=== PATIENT | female | born 1965 | race African-American/Black ===

== ENCOUNTER 2020-07-22 21:55 | Emergency (ER) | payer MEDICAID ==
[~2020-07-22] VITALS: Ht 167.6 cm; Wt 94.5 kg
[~2020-07-22 21:55] MED LIST: METF500T PO; QUET100T PO
[2020-07-22 22:54] LABS: BASOPHILS % (AUTO) 0.4 % (0.0-2.0); EOSINOPHILS % (AUTO) 0.7 % (1.0-6.0); HEMATOCRIT 39.8 % (36-46); LYMPHOCYTES # (AUTO) 2.2 K/uL (1.0-4.8); MEAN CORPUSCULAR HEMOGLOBIN 29.9 pg (26.0-34.0); MEAN CORPUSCULAR HGB CONC 32.6 G/dL (31.0-37.0); MEAN CORPUSCULAR VOLUME 92 fL (80-100); MONOCYTES # (AUTO) 0.7 K/uL (0.1-1.0); MONOCYTES % (AUTO) 6.7 % (2.0-9.0); NEUTROPHILS # (AUTO) 7.6 K/uL (1.8-7.7); NEUTROPHILS % (AUTO) 71.2 % (40.0-70.0); PLATELET COUNT (AUTO) 302 K/uL (150-450); RED BLOOD CELL COUNT(AUTO) 4.35 MIL/uL (4.00-5.20); RED CELL DISTRIBUTION WIDTH 14.3 % (11.5-14.5)
[2020-07-22 23:09] LABS: ANION GAP 14 mmol/L (8-16); CARBON DIOXIDE 22 mmol/L (22-29); CHLORIDE 102 mmol/L (98-107); CREATININE 1.07 mg/dL (0.60-1.30); GLOMERULAR FILTR. RATE CALC > 60 mL/min (>60); GLUCOSE,RANDOM 223 mg/dL (70-110); POTASSIUM 3.3 mmol/L (3.5-5.1); SODIUM SERUM 138 mmol/L (136-145); UREA NITROGEN, BLOOD 18 mg/dL (7-18)
[2020-07-22 23:15] LABS: ALANINE AMINOTRANSFERASE 238 U/L (12-78); ALBUMIN 3.6 g/dL (3.4-5.0); ALKALINE PHOSPHATASE 123 U/L (46-116); ASPARTATE AMINOTRANSFERASE 279 U/L (15-37); BILIRUBIN,TOTAL 0.1 mg/dL (0.1-1.0); TOTAL PROTEIN, SERUM 7.7 g/dL (6.4-8.2)
[2020-07-22 23:16] LABS: ACETAMINOPHEN < 2 mcg/mL (10-30)
[2020-07-22 23:19] LABS: SALICYLATE < 2.5 mg/dL (2.8-20.0)
[2020-07-23 06:00] VITALS: BP 117/73
== END 2020-07-23 06:20 | disposition home or self-care (01) ==
LOC: EMS 21:55
DX: T40.2X1A Poisoning by other opioids, accidental (unintentional), initial encounter (principal); E11.9 Type 2 diabetes mellitus without complications; F17.200 Nicotine dependence, unspecified, uncomplicated; Z79.4 Long term (current) use of insulin; Y92.89 Other specified places as the place of occurrence of the external cause
CPT/HCPCS: 36415; 80053; 85025; 93005; 99285; G0480; G0481

== ENCOUNTER 2020-08-26 08:48 | Inpatient (IN) | payer MEDICAID ==
[2020-08-26] MEDS ORDERED: LORazepam 2 MG/ML VIAL ONE (14:34)
[2020-08-26] MEDS ORDERED: HALOPERIDOL LACTATE 5 MG/ML VIAL ONE (14:34)
[2020-08-26] MEDS ORDERED: DiphenhydrAMINE HCL 50 MG/ML VIAL ONE (14:34)
[2020-08-26] MEDS ORDERED: HALOPERIDOL LACTATE 5 MG/ML VIAL IM ONE (14:45)
[2020-08-26] MEDS ORDERED: LORazepam 2 MG/ML VIAL IM ONE (14:45)
[2020-08-26] MEDS ORDERED: DiphenhydrAMINE HCL 50 MG/ML VIAL IM ONE (14:45)
[2020-08-26] MEDS ORDERED: HALOPERIDOL 5 MG TABLET PO PRN (15:30)
[2020-08-26] MEDS ORDERED: ZOLPIDEM TARTRATE 10 MG TABLET PO PRN (15:30)
[2020-08-26 17:06] VITALS: BP 113/79
[2020-08-26] MEDS: NICOTINE 14 MG/24 HOUR PATCH TD SCH (20:53)
[2020-08-26 21:02] LABS: GLUCOMETER DEV NAME(LOC) BV3S.; GLUCOSE,POINT OF CARE 153 MG/DL (70-110)
[2020-08-27] MEDS: NICOTINE 14 MG/24 HOUR PATCH TD SCH (10:04)
[2020-08-27] MEDS: LORazepam 2 MG TABLET PO PRN (10:04)
[2020-08-27] MEDS ORDERED: RisperiDONE 1 MG TABLET PO SCH (18:45)
[2020-08-27] MEDS: BENZTROPINE MESYLATE 1 MG TABLET PO SCH (18:53)
[2020-08-27] MEDS: DIVALPROEX SODIUM 500 MG DR TABLET PO SCH (18:53)
[2020-08-27] MEDS ORDERED: BENZOCAINE/MENTHOL LOZENGE PO PRN (19:30)
[2020-08-27] MEDS ORDERED: LOPERAMIDE HCL 2 MG CAPSULE PO PRN (19:30)
[2020-08-27] MEDS ORDERED: CloNIDine HCL 0.1 MG TABLET PO PRN (19:30)
[2020-08-27] MEDS ORDERED: BACITRACIN 28 GM OINTMENT TP PRN (19:30)
[2020-08-27] MEDS ORDERED: MAG HYDROX/AL HYDROX/SIMETH ES 30 ML SUSPENSION UDCUP PO PRN (19:30)
[2020-08-27] MEDS ORDERED: ALBUTEROL SULFATE HFA 90 MCG/PUFF 8 GM INHALER IH PRN (19:30)
[2020-08-27] MEDS ORDERED: PETROLATUM,WHITE 28 GM JELLY TP PRN (19:30)
[2020-08-27] MEDS ORDERED: DOCUSATE SODIUM 100 MG CAPSULE PO PRN (19:30)
[2020-08-27] MEDS ORDERED: ACETAMINOPHEN 325 MG TABLET PO PRN (19:30)
[2020-08-27] MEDS ORDERED: ONDANSETRON HCL 4 MG TABLET PO PRN (19:30)
[2020-08-27] MEDS ORDERED: OMEPRAZOLE 20 MG CAPSULE PO PRN (19:30)
[2020-08-27] MEDS ORDERED: MAGNESIUM HYDROXIDE SUSPENSION 30 ML UDCUP PO PRN (19:30)
[2020-08-27] MEDS: OLANZapine 5 MG TABLET PO SCH (21:13)
[2020-08-28 00:18] VITALS: BP 100/61
[2020-08-28 07:46] LABS: BASOPHILS % (AUTO) 0.5 % (0.0-2.0); EOSINOPHILS % (AUTO) 2.5 % (1.0-6.0); HEMATOCRIT 40.3 % (36-46); HEMOGLOBIN 13.5 g/dL (12.0-16.0); LYMPHOCYTES # (AUTO) 1.8 K/uL (1.0-4.8); MEAN CORPUSCULAR HEMOGLOBIN 30.8 pg (26.0-34.0); MEAN CORPUSCULAR HGB CONC 33.5 G/dL (31.0-37.0); MEAN CORPUSCULAR VOLUME 92 fL (80-100); MONOCYTES # (AUTO) 0.5 K/uL (0.1-1.0); MONOCYTES % (AUTO) 10.3 % (2.0-9.0); NEUTROPHILS # (AUTO) 2.2 K/uL (1.8-7.7); NEUTROPHILS % (AUTO) 47.7 % (40.0-70.0); PLATELET COUNT (AUTO) 306 K/uL (150-450); RED BLOOD CELL COUNT(AUTO) 4.38 MIL/uL (4.00-5.20); RED CELL DISTRIBUTION WIDTH 14.5 % (11.5-14.5)
[2020-08-28 08:18] LABS: ALANINE AMINOTRANSFERASE 22 U/L (12-78); ALBUMIN 3.2 g/dL (3.4-5.0); ALKALINE PHOSPHATASE 114 U/L (46-116); ANION GAP 6 mmol/L (8-16); ASPARTATE AMINOTRANSFERASE 16 U/L (15-37); BILIRUBIN,TOTAL 0.1 mg/dL (0.1-1.0); CALCIUM, TOTAL 8.9 mg/dL (8.8-10.5); CARBON DIOXIDE 30 mmol/L (22-29); CHLORIDE 109 mmol/L (98-107); CHOL/HDL RATIO 3.3 (3.9-5.7); CHOLESTEROL 143 mg/dL (131-200); CREATININE 0.72 mg/dL (0.60-1.30); FREE T4 (FREE THYROXINE) 0.98 ng/dL (0.76-1.46); GLOMERULAR FILTR. RATE CALC > 60 mL/min (>60); GLUCOSE,RANDOM 141 mg/dL (70-110); HCG,QUANTITATIVE 1 mIU/mL (0-6); HDL CHOLESTEROL 44 mg/dL (40-60); LDL CHOL (CALC.) 76 mg/dL (0-130); POTASSIUM 4.3 mmol/L (3.5-5.1); SODIUM SERUM 145 mmol/L (136-145); THYROID STIMULATING HORMONE 0.35 uIU/mL (0.36-3.74); TOTAL PROTEIN, SERUM 6.9 g/dL (6.4-8.2); TRIGLYCERIDES 115 mg/dL (15-150); UREA NITROGEN, BLOOD 14 mg/dL (7-18)
[2020-08-28] MEDS: NICOTINE 14 MG/24 HOUR PATCH TD SCH (09:52)
[2020-08-28] MEDS: BENZTROPINE MESYLATE 1 MG TABLET PO SCH ×2 (09:52→16:10)
[2020-08-28] MEDS: DIVALPROEX SODIUM 500 MG DR TABLET PO SCH ×2 (09:52→16:10)
[2020-08-28] MEDS: LORazepam 2 MG TABLET PO PRN (09:52)
[2020-08-28 12:39] VITALS: BP 116/72
[2020-08-28] MEDS: IBUPROFEN 600 MG TABLET PO PRN (16:13)
[2020-08-28] MEDS: OLANZapine 5 MG TABLET PO SCH (20:20)
[2020-08-29 01:10] VITALS: BP 100/63
[2020-08-29 08:12] VITALS: BP 100/62
[2020-08-29] MEDS: BENZTROPINE MESYLATE 1 MG TABLET PO SCH ×2 (08:17→16:10)
[2020-08-29] MEDS: DIVALPROEX SODIUM 500 MG DR TABLET PO SCH ×2 (08:17→16:10)
[2020-08-29] MEDS: NICOTINE 14 MG/24 HOUR PATCH TD SCH (08:17)
[2020-08-29] MEDS: LORazepam 2 MG TABLET PO PRN ×2 (08:17→17:08)
[2020-08-29 17:08] VITALS: BP 128/92
[2020-08-29] MEDS: IBUPROFEN 600 MG TABLET PO PRN (17:08)
[2020-08-29] MEDS: OLANZapine 5 MG TABLET PO SCH (20:46)
[2020-08-30 06:31] VITALS: BP 130/73
[2020-08-30 08:10] VITALS: BP 116/72
[2020-08-30] MEDS: LORazepam 2 MG TABLET PO PRN ×2 (08:21→16:02)
[2020-08-30] MEDS: NICOTINE 14 MG/24 HOUR PATCH TD SCH (08:21)
[2020-08-30] MEDS: DIVALPROEX SODIUM 500 MG DR TABLET PO SCH ×2 (08:21→16:02)
[2020-08-30] MEDS: BENZTROPINE MESYLATE 1 MG TABLET PO SCH ×2 (08:21→16:02)
[2020-08-30 16:34] VITALS: BP 118/70
[2020-08-30] MEDS: OLANZapine 5 MG TABLET PO SCH (21:03)
[2020-08-31] MEDS: LORazepam 2 MG TABLET PO PRN (06:47)
[2020-08-31] MEDS: DIVALPROEX SODIUM 500 MG DR TABLET PO SCH (08:06)
[2020-08-31] MEDS: BENZTROPINE MESYLATE 1 MG TABLET PO SCH (08:06)
[2020-08-31] MEDS: NICOTINE 14 MG/24 HOUR PATCH TD SCH (08:06)
[2020-08-31 08:45] VITALS: BP 120/70
[2020-08-31] MEDS ORDERED: BENZ1TAB10 PO (09:45)
[2020-08-31] MEDS ORDERED: QUET300T2 PO (09:45)
[2020-08-31] MEDS ORDERED: DIVA-112 PO (09:45)
[2020-08-31] MEDS ORDERED: QUEtiapine FUMARATE 300 MG TABLET PO SCH (21:00)
== END 2020-08-31 13:00 | disposition home or self-care (01) | DRG 750 ==
LOC: B3A 13:50
PROVIDERS: ADMIT Psychiatry & Neurology Psychiatry; ATTEND Psychiatry & Neurology Psychiatry
DX: F25.9 Schizoaffective disorder, unspecified (principal); R45.851 Suicidal ideations; E11.9 Type 2 diabetes mellitus without complications; F41.9 Anxiety disorder, unspecified; F32.9 Major depressive disorder, single episode, unspecified; I10 Essential (primary) hypertension; Z88.8 Allergy status to other drugs, medicaments and biological substances; Z91.012 Allergy to eggs; G47.00 Insomnia, unspecified; K59.00 Constipation, unspecified; F19.10 Other psychoactive substance abuse, uncomplicated
CPT/HCPCS: 84436; 84439; 84443; J1200; J1630; J2060

== ENCOUNTER 2021-01-17 09:56 | Inpatient (IN) | payer MEDICAID ==
[~2021-01-17] VITALS: Ht 157.5 cm; Wt 93.7 kg
[~2021-01-17 09:56] MED LIST changes: +BENZ1TAB10 PO; +DIVA-112 PO; -METF500T PO; -QUET100T PO; +QUET300T2 PO
[2021-01-17 18:11] VITALS: BP 144/98
[2021-01-17] MEDS ORDERED: TUBERCULIN, PURIFIED PROTEIN DERIVATIVE 5 TU/0.1 ML SYRINGE ID ONE (18:45)
[2021-01-17] MEDS ORDERED: MAG HYDROX/AL HYDROX/SIMETH ES 30 ML SUSPENSION UDCUP PO PRN (18:45)
[2021-01-17] MEDS ORDERED: PROMETHAZINE HCL 25 MG TABLET PO PRN (18:45)
[2021-01-17] MEDS ORDERED: GuaiFENesin/D-METHORPHAN [SUGAR-FREE] 200-20MG/10 ML SYRUP UDCUP PO PRN (18:45)
[2021-01-17] MEDS ORDERED: MAGNESIUM HYDROXIDE SUSPENSION 30 ML UDCUP PO PRN (18:45)
[2021-01-17] MEDS ORDERED: ZOLPIDEM TARTRATE 10 MG TABLET PO PRN (18:45)
[2021-01-17] MEDS ORDERED: -PHARMACY VACCINE NOTE- MISC ONE (18:45)
[2021-01-17] MEDS ORDERED: LOPERAMIDE HCL 2 MG CAPSULE PO PRN (18:45)
[2021-01-17] MEDS ORDERED: DEXTROSE 50%-WATER 25 GM/50 ML SYRINGE IVP PRN ×2 (19:30→20:15)
[2021-01-17] MEDS: MELATONIN 5 MG TABLET PO SCH (20:48)
[2021-01-17] MEDS: SULFAMETHOX/TRIMETH DS 800-160 MG/TABLET PO SCH (20:48)
[2021-01-17] MEDS: DIVALPROEX SODIUM 500 MG ER TABLET PO SCH (20:48)
[2021-01-17] MEDS: TraMADol HCL 50 MG TABLET PO PRN (20:48)
[2021-01-17 20:54] LABS: GLUCOMETER DEV NAME(LOC) 3E.I 2; GLUCOSE,POINT OF CARE 507 MG/DL (70-110)
[2021-01-17] MEDS ORDERED: INSULIN GLARGINE,HUM.REC.ANLOG 100 UNITS/ML SQ SCH (21:00)
[2021-01-17] MEDS ORDERED: PALIPERIDONE PALMITATE 234 MG/1.5 ML SYRINGE IM ONE (21:00)
[2021-01-17] MEDS ORDERED: QUEtiapine FUMARATE 200 MG TABLET PO SCH (21:00)
[2021-01-17] MEDS: INSULIN LISPRO 100 UNITS/ML SQ PRN (22:49)
[2021-01-17] MEDS ORDERED: INSULIN LISPRO 100 UNITS/ML SQ ONE (23:45)
[2021-01-18 01:00] LABS: GLUCOMETER DEV NAME(LOC) 3E.I 2; GLUCOSE,POINT OF CARE 335 MG/DL (70-110)
[2021-01-18 02:19] VITALS: BP 100/62
[2021-01-18 03:00] LABS: GLUCOMETER DEV NAME(LOC) 3E.I 2; GLUCOSE,POINT OF CARE 159 MG/DL (70-110)
[2021-01-18 05:33] LABS: GLUCOMETER DEV NAME(LOC) 3E.I 2; GLUCOSE,POINT OF CARE 156 MG/DL (70-110)
[2021-01-18 06:16] LABS: HEMATOCRIT 35.4 % (36-46); HEMOGLOBIN 11.8 g/dL (12.0-16.0); MEAN CORPUSCULAR HEMOGLOBIN 30.3 pg (26.0-34.0); MEAN CORPUSCULAR HGB CONC 33.5 G/dL (31.0-37.0); MEAN CORPUSCULAR VOLUME 91 fL (80-100); PLATELET COUNT (AUTO) 263 K/uL (150-450); RED CELL DISTRIBUTION WIDTH 14.1 % (11.5-14.5)
[2021-01-18 06:19] LABS: BAND NEUTROPHILS % (MANUAL) 0 % (0-5)
[2021-01-18 06:31] LABS: HEMOGLOBIN A1C 13.5 % (3.8-5.6)
[2021-01-18 06:46] LABS: ALANINE AMINOTRANSFERASE 13 U/L (12-78); ALBUMIN 2.6 g/dL (3.4-5.0); ALKALINE PHOSPHATASE 91 U/L (46-116); ANION GAP 7 mmol/L (8-16); ASPARTATE AMINOTRANSFERASE 8 U/L (15-37); BILIRUBIN,TOTAL 0.1 mg/dL (0.1-1.0); CALCIUM, TOTAL 9.4 mg/dL (8.8-10.5); CARBON DIOXIDE 28 mmol/L (22-29); CHLORIDE 101 mmol/L (98-107); CHOL/HDL RATIO 3.5 (3.9-5.7); CHOLESTEROL 104 mg/dL (131-200); CREATININE 0.58 mg/dL (0.60-1.30); FREE T4 (FREE THYROXINE) 1.37 ng/dL (0.76-1.46); GLOMERULAR FILTR. RATE CALC > 60 mL/min (>60); GLUCOSE,RANDOM 198 mg/dL (70-110); HDL CHOLESTEROL 30 mg/dL (40-60); LDL CHOL (CALC.) 63 mg/dL (0-130); POTASSIUM 3.9 mmol/L (3.5-5.1); SODIUM SERUM 136 mmol/L (136-145); TOTAL PROTEIN, SERUM 6.3 g/dL (6.4-8.2); TRIGLYCERIDES 54 mg/dL (15-150); UREA NITROGEN, BLOOD 11 mg/dL (7-18); VALPROIC ACID 55 mcg/mL (50-100)
[2021-01-18] MEDS: INSULIN LISPRO 100 UNITS/ML SQ PRN ×4 (06:51→20:58)
[2021-01-18] MEDS: MetFORMIN HCL 500 MG TABLET PO SCH ×2 (06:55→17:07)
[2021-01-18 06:59] LABS: BASOPHILS % (MANUAL) 1 % (0-2); EOSINOPHILS % (MANUAL) 1 % (1-6); LYMPHOCYTES % (MANUAL) 47 % (22-44); MONOCYTES % (MANUAL) 19 % (2-9); SEGMENTED NEUTROPHILS % 32 % (40-70)
[2021-01-18 08:00] VITALS: BP 123/90
[2021-01-18] MEDS: OMEGA-3/DHA/EPA/FISH OIL 1,000 MG CAPSULE PO SCH (08:47)
[2021-01-18] MEDS: THIAMINE 100 MG TABLET PO SCH ×2 (08:47→16:39)
[2021-01-18] MEDS: NALTREXONE HCL 50 MG TABLET PO SCH (08:49)
[2021-01-18] MEDS: MULTIVITAMINS WITH MINERALS, THERAPEUTIC TABLET PO SCH (08:49)
[2021-01-18] MEDS: FOLIC ACID 1 MG TABLET PO SCH (08:49)
[2021-01-18] MEDS: TraMADol HCL 50 MG TABLET PO PRN (08:50)
[2021-01-18] MEDS: HydrOXYzine PAMOATE 50 MG CAPSULE PO PRN (08:50)
[2021-01-18] MEDS: SULFAMETHOX/TRIMETH DS 800-160 MG/TABLET PO SCH ×2 (08:50→16:38)
[2021-01-18] MEDS: QUEtiapine FUMARATE 100 MG TABLET PO PRN ×2 (09:01→16:39)
[2021-01-18 11:47] LABS: GLUCOMETER DEV NAME(LOC) 3E.I 2; GLUCOSE,POINT OF CARE 389 MG/DL (70-110)
[2021-01-18 16:00] VITALS: BP 110/79
[2021-01-18 17:17] LABS: GLUCOMETER DEV NAME(LOC) 3E.I 2; GLUCOSE,POINT OF CARE 369 MG/DL (70-110)
[2021-01-18] MEDS ORDERED: PENICILLIN G BENZATHINE LA 2,400,000 UNITS/4 ML SYRINGE IM ONE (19:15)
[2021-01-18] MEDS: MELATONIN 5 MG TABLET PO SCH (20:48)
[2021-01-18] MEDS: DIVALPROEX SODIUM 500 MG ER TABLET PO SCH (20:48)
[2021-01-18] MEDS ORDERED: INSULIN GLARGINE,HUM.REC.ANLOG 100 UNITS/ML SQ SCH (21:00)
[2021-01-18] MEDS ORDERED: QUEtiapine FUMARATE 300 MG TABLET PO SCH (21:00)
[2021-01-18] MEDS ORDERED: DiphenhydrAMINE HCL 25 MG CAPSULE PO SCH (21:00)
[2021-01-19 01:15] VITALS: BP 105/61
[2021-01-19 05:37] LABS: GLUCOMETER DEV NAME(LOC) 3E.I 2; GLUCOSE,POINT OF CARE 328 MG/DL (70-110)
[2021-01-19] MEDS: MetFORMIN HCL 500 MG TABLET PO SCH ×2 (06:53→16:57)
[2021-01-19] MEDS: INSULIN LISPRO 100 UNITS/ML SQ PRN ×3 (06:54→21:12)
[2021-01-19] MEDS ORDERED: QUEtiapine FUMARATE 100 MG TABLET PO SCH (09:00)
[2021-01-19 09:03] VITALS: BP 114/79
[2021-01-19] MEDS: NALTREXONE HCL 50 MG TABLET PO SCH (10:52)
[2021-01-19] MEDS: SERTRALINE HCL 100 MG TABLET PO SCH (10:52)
[2021-01-19] MEDS: THIAMINE 100 MG TABLET PO SCH ×2 (10:52→16:57)
[2021-01-19] MEDS: FOLIC ACID 1 MG TABLET PO SCH (10:52)
[2021-01-19] MEDS: OMEGA-3/DHA/EPA/FISH OIL 1,000 MG CAPSULE PO SCH (10:52)
[2021-01-19] MEDS: SULFAMETHOX/TRIMETH DS 800-160 MG/TABLET PO SCH ×2 (10:52→16:57)
[2021-01-19] MEDS: MULTIVITAMINS WITH MINERALS, THERAPEUTIC TABLET PO SCH (10:52)
[2021-01-19 11:58] LABS: GLUCOMETER DEV NAME(LOC) 3E.I 2; GLUCOSE,POINT OF CARE 414 MG/DL (70-110)
[2021-01-19 13:26] LABS: GLUCOMETER DEV NAME(LOC) 3E.I 2; GLUCOSE,POINT OF CARE 388 MG/DL (70-110)
[2021-01-19] MEDS ORDERED: INSULIN LISPRO 100 UNITS/ML SQ ONE (13:30)
[2021-01-19 16:00] VITALS: BP 104/74
[2021-01-19] MEDS: MUPIROCIN CALCIUM 2% 22 GM OINTMENT TP SCH (16:57)
[2021-01-19] MEDS: ACETAMINOPHEN 325 MG TABLET PO PRN (16:57)
[2021-01-19] MEDS: QUEtiapine FUMARATE 100 MG TABLET PO PRN (16:57)
[2021-01-19 17:25] LABS: GLUCOMETER DEV NAME(LOC) 3E.I 2; GLUCOSE,POINT OF CARE 181 MG/DL (70-110)
[2021-01-19] MEDS: DIVALPROEX SODIUM 500 MG ER TABLET PO SCH (20:24)
[2021-01-19] MEDS: QUEtiapine FUMARATE 200 MG TABLET PO SCH (20:24)
[2021-01-19] MEDS: MELATONIN 5 MG TABLET PO SCH (20:24)
[2021-01-19] MEDS ORDERED: ROPINIRole HCL 1 MG TABLET PO ONE (20:45)
[2021-01-19] MEDS ORDERED: INSULIN GLARGINE,HUM.REC.ANLOG 100 UNITS/ML SQ SCH (21:00)
[2021-01-19] MEDS ORDERED: ROPINIRole HCL 1 MG TABLET PO SCH (21:00)
[2021-01-19 21:26] LABS: GLUCOMETER DEV NAME(LOC) 3E.I 2; GLUCOSE,POINT OF CARE 219 MG/DL (70-110)
[2021-01-20 03:29] VITALS: BP 97/63
[2021-01-20] MEDS: ACETAMINOPHEN 325 MG TABLET PO PRN (03:37)
[2021-01-20 05:50] LABS: GLUCOMETER DEV NAME(LOC) 3E.I 2; GLUCOSE,POINT OF CARE 355 MG/DL (70-110)
[2021-01-20] MEDS: MetFORMIN HCL 500 MG TABLET PO SCH ×2 (07:01→17:30)
[2021-01-20] MEDS: INSULIN LISPRO 100 UNITS/ML SQ PRN ×4 (07:07→21:10)
[2021-01-20 08:58] VITALS: BP 113/57
[2021-01-20] MEDS: SERTRALINE HCL 100 MG TABLET PO SCH (09:00)
[2021-01-20] MEDS: FOLIC ACID 1 MG TABLET PO SCH (09:00)
[2021-01-20] MEDS: MUPIROCIN CALCIUM 2% 22 GM OINTMENT TP SCH ×2 (09:00→20:01)
[2021-01-20] MEDS: OMEGA-3/DHA/EPA/FISH OIL 1,000 MG CAPSULE PO SCH (09:00)
[2021-01-20] MEDS: QUEtiapine FUMARATE 25 MG TABLET PO SCH ×3 (09:00→16:14)
[2021-01-20] MEDS: MULTIVITAMINS WITH MINERALS, THERAPEUTIC TABLET PO SCH (09:00)
[2021-01-20] MEDS: THIAMINE 100 MG TABLET PO SCH ×2 (09:00→16:14)
[2021-01-20] MEDS: NALTREXONE HCL 50 MG TABLET PO SCH (09:00)
[2021-01-20] MEDS: DiphenhydrAMINE HCL 25 MG CAPSULE PO SCH ×3 (09:00→16:14)
[2021-01-20] MEDS: SULFAMETHOX/TRIMETH DS 800-160 MG/TABLET PO SCH ×2 (09:00→16:14)
[2021-01-20 11:52] LABS: GLUCOMETER DEV NAME(LOC) 3E.I 2; GLUCOSE,POINT OF CARE 168 MG/DL (70-110)
[2021-01-20 16:00] VITALS: BP 92/62
[2021-01-20 16:49] LABS: GLUCOMETER DEV NAME(LOC) 3E.I 2; GLUCOSE,POINT OF CARE 247 MG/DL (70-110)
[2021-01-20] MEDS: HydrOXYzine PAMOATE 50 MG CAPSULE PO PRN (16:52)
[2021-01-20] MEDS: QUEtiapine FUMARATE 200 MG TABLET PO SCH (20:36)
[2021-01-20] MEDS: DIVALPROEX SODIUM 500 MG ER TABLET PO SCH (20:36)
[2021-01-20] MEDS: ROPINIRole HCL 1 MG TABLET PO SCH (20:37)
[2021-01-20] MEDS: MELATONIN 5 MG TABLET PO SCH (20:37)
[2021-01-20] MEDS ORDERED: INSULIN GLARGINE,HUM.REC.ANLOG 100 UNITS/ML SQ SCH (21:00)
[2021-01-20 21:09] LABS: GLUCOMETER DEV NAME(LOC) 3E.I 2; GLUCOSE,POINT OF CARE 203 MG/DL (70-110)
[2021-01-21 01:40] VITALS: BP 104/72
[2021-01-21] MEDS: ACETAMINOPHEN 325 MG TABLET PO PRN ×2 (01:42→08:07)
[2021-01-21] MEDS ORDERED: DiphenhydrAMINE HCL 25 MG CAPSULE PO ONE (02:00)
[2021-01-21 05:42] LABS: GLUCOMETER DEV NAME(LOC) 3E.I 2; GLUCOSE,POINT OF CARE 266 MG/DL (70-110)
[2021-01-21] MEDS: MetFORMIN HCL 500 MG TABLET PO SCH ×2 (06:46→16:38)
[2021-01-21] MEDS: INSULIN LISPRO 100 UNITS/ML SQ PRN ×4 (06:46→21:04)
[2021-01-21] MEDS: QUEtiapine FUMARATE 25 MG TABLET PO SCH ×3 (06:46→16:38)
[2021-01-21] MEDS: QUEtiapine FUMARATE 100 MG TABLET PO PRN (08:07)
[2021-01-21] MEDS: SULFAMETHOX/TRIMETH DS 800-160 MG/TABLET PO SCH ×2 (08:07→16:38)
[2021-01-21] MEDS: DiphenhydrAMINE HCL 25 MG CAPSULE PO SCH ×3 (08:08→16:39)
[2021-01-21] MEDS: HydrOXYzine PAMOATE 50 MG CAPSULE PO PRN (08:08)
[2021-01-21] MEDS: OMEGA-3/DHA/EPA/FISH OIL 1,000 MG CAPSULE PO SCH (08:08)
[2021-01-21] MEDS: SERTRALINE HCL 100 MG TABLET PO SCH (08:08)
[2021-01-21] MEDS: THIAMINE 100 MG TABLET PO SCH ×2 (08:08→16:38)
[2021-01-21] MEDS: MULTIVITAMINS WITH MINERALS, THERAPEUTIC TABLET PO SCH (08:08)
[2021-01-21] MEDS: NALTREXONE HCL 50 MG TABLET PO SCH (08:09)
[2021-01-21] MEDS: MUPIROCIN CALCIUM 2% 22 GM OINTMENT TP SCH ×2 (08:09→16:45)
[2021-01-21] MEDS: FOLIC ACID 1 MG TABLET PO SCH (08:09)
[2021-01-21] MEDS ORDERED: PALIPERIDONE PALMITATE 156 MG/ML SYRINGE IM ONE (09:00)
[2021-01-21 09:26] VITALS: BP 111/69
[2021-01-21] MEDS: LORazepam 2 MG TABLET PO PRN (11:16)
[2021-01-21 11:19] LABS: GLUCOMETER DEV NAME(LOC) 3E.I 2; GLUCOSE,POINT OF CARE 371 MG/DL (70-110)
[2021-01-21 16:16] VITALS: BP 114/76
[2021-01-21 18:26] LABS: GLUCOMETER DEV NAME(LOC) 3E.I 2; GLUCOSE,POINT OF CARE 377 MG/DL (70-110)
[2021-01-21] MEDS ORDERED: DiphenhydrAMINE HCL 50 MG/ML VIAL IM ONE (20:15)
[2021-01-21] MEDS ORDERED: HALOPERIDOL LACTATE 5 MG/ML VIAL IM ONE (20:15)
[2021-01-21] MEDS ORDERED: LORazepam 2 MG/ML VIAL IM ONE (20:15)
[2021-01-21] MEDS: QUEtiapine FUMARATE 200 MG TABLET PO SCH (20:35)
[2021-01-21] MEDS: MELATONIN 5 MG TABLET PO SCH (20:35)
[2021-01-21] MEDS: ROPINIRole HCL 1 MG TABLET PO SCH (20:35)
[2021-01-21] MEDS: DIVALPROEX SODIUM 500 MG ER TABLET PO SCH (20:35)
[2021-01-21] MEDS: TRIHEXYPHENIDYL HCL 2 MG TABLET PO SCH (21:00)
[2021-01-21] MEDS: INSULIN GLARGINE,HUM.REC.ANLOG 100 UNITS/ML SQ SCH (21:00)
[2021-01-21 21:12] LABS: GLUCOMETER DEV NAME(LOC) 3E.I 2; GLUCOSE,POINT OF CARE 295 MG/DL (70-110)
[2021-01-22 05:36] LABS: GLUCOMETER DEV NAME(LOC) 3E.I 2; GLUCOSE,POINT OF CARE 249 MG/DL (70-110)
[2021-01-22] MEDS: INSULIN LISPRO 100 UNITS/ML SQ PRN ×3 (06:48→17:37)
[2021-01-22] MEDS: QUEtiapine FUMARATE 25 MG TABLET PO SCH ×3 (06:49→17:04)
[2021-01-22] MEDS: MetFORMIN HCL 500 MG TABLET PO SCH ×2 (06:49→17:04)
[2021-01-22 08:00] VITALS: BP 97/51
[2021-01-22] MEDS: TRIHEXYPHENIDYL HCL 2 MG TABLET PO SCH ×4 (09:10→20:55)
[2021-01-22] MEDS: MULTIVITAMINS WITH MINERALS, THERAPEUTIC TABLET PO SCH (09:10)
[2021-01-22] MEDS: SERTRALINE HCL 100 MG TABLET PO SCH (09:10)
[2021-01-22] MEDS: THIAMINE 100 MG TABLET PO SCH ×2 (09:10→17:04)
[2021-01-22] MEDS: NALTREXONE HCL 50 MG TABLET PO SCH (09:10)
[2021-01-22] MEDS: SULFAMETHOX/TRIMETH DS 800-160 MG/TABLET PO SCH ×2 (09:11→17:04)
[2021-01-22] MEDS: FOLIC ACID 1 MG TABLET PO SCH (09:11)
[2021-01-22] MEDS: DiphenhydrAMINE HCL 25 MG CAPSULE PO SCH ×3 (09:11→17:04)
[2021-01-22] MEDS: OMEGA-3/DHA/EPA/FISH OIL 1,000 MG CAPSULE PO SCH (09:11)
[2021-01-22] MEDS: LIDOCAINE 2% 30 ML JELLY TP PRN (09:12)
[2021-01-22] MEDS: LORazepam 2 MG TABLET PO PRN ×2 (09:41→17:15)
[2021-01-22 09:50] VITALS: BP 113/56
[2021-01-22] MEDS: TraMADol HCL 50 MG TABLET PO PRN (09:50)
[2021-01-22] MEDS: MUPIROCIN CALCIUM 2% 22 GM OINTMENT TP SCH ×2 (09:58→17:04)
[2021-01-22] MEDS: DOXYCYCLINE HYCLATE 100 MG TABLET PO SCH ×2 (10:20→17:04)
[2021-01-22 11:00] VITALS: BP 110/67
[2021-01-22 11:30] LABS: GLUCOMETER DEV NAME(LOC) 3E.I 2; GLUCOSE,POINT OF CARE 318 MG/DL (70-110)
[2021-01-22 14:50] LABS: COVID AG,FIA SOURCE NASOPHARYNGEAL
[2021-01-22 16:22] VITALS: BP 129/72
[2021-01-22 17:24] LABS: GLUCOMETER DEV NAME(LOC) 3E.I 2; GLUCOSE,POINT OF CARE 404 MG/DL (70-110)
[2021-01-22] MEDS ORDERED: INSULIN LISPRO 100 UNITS/ML SQ ONE (18:15)
[2021-01-22] MEDS: ROPINIRole HCL 1 MG TABLET PO SCH (20:55)
[2021-01-22] MEDS: DIVALPROEX SODIUM 500 MG ER TABLET PO SCH (20:55)
[2021-01-22] MEDS: QUEtiapine FUMARATE 200 MG TABLET PO SCH (20:55)
[2021-01-22] MEDS: MELATONIN 5 MG TABLET PO SCH (21:00)
[2021-01-22 21:21] LABS: GLUCOMETER DEV NAME(LOC) 3E.I 2; GLUCOSE,POINT OF CARE 122 MG/DL (70-110)
[2021-01-23 02:17] VITALS: BP 122/75
[2021-01-23] MEDS: TraMADol HCL 50 MG TABLET PO PRN ×2 (02:17→11:38)
[2021-01-23] MEDS: LORazepam 2 MG TABLET PO PRN ×3 (02:17→20:15)
[2021-01-23 05:45] LABS: GLUCOMETER DEV NAME(LOC) 3E.I 2; GLUCOSE,POINT OF CARE 181 MG/DL (70-110)
[2021-01-23] MEDS: QUEtiapine FUMARATE 25 MG TABLET PO SCH ×3 (06:38→16:22)
[2021-01-23] MEDS: INSULIN LISPRO 100 UNITS/ML SQ PRN ×3 (06:38→16:32)
[2021-01-23] MEDS: MetFORMIN HCL 500 MG TABLET PO SCH ×2 (06:38→16:22)
[2021-01-23] MEDS: NALTREXONE HCL 50 MG TABLET PO SCH (09:25)
[2021-01-23] MEDS: FOLIC ACID 1 MG TABLET PO SCH (09:25)
[2021-01-23] MEDS: DiphenhydrAMINE HCL 25 MG CAPSULE PO SCH ×3 (09:26→16:22)
[2021-01-23] MEDS: SULFAMETHOX/TRIMETH DS 800-160 MG/TABLET PO SCH ×2 (09:26→16:22)
[2021-01-23] MEDS: MULTIVITAMINS WITH MINERALS, THERAPEUTIC TABLET PO SCH (09:26)
[2021-01-23] MEDS: THIAMINE 100 MG TABLET PO SCH ×2 (09:26→16:22)
[2021-01-23] MEDS: OMEGA-3/DHA/EPA/FISH OIL 1,000 MG CAPSULE PO SCH (09:26)
[2021-01-23] MEDS: TRIHEXYPHENIDYL HCL 2 MG TABLET PO SCH ×4 (09:27→20:17)
[2021-01-23] MEDS: MUPIROCIN CALCIUM 2% 22 GM OINTMENT TP SCH ×2 (09:28→16:23)
[2021-01-23] MEDS: DOXYCYCLINE HYCLATE 100 MG TABLET PO SCH ×2 (09:28→16:22)
[2021-01-23] MEDS: SERTRALINE HCL 100 MG TABLET PO SCH (09:29)
[2021-01-23 10:17] VITALS: BP 103/56
[2021-01-23 11:26] LABS: GLUCOMETER DEV NAME(LOC) 3E.I 2; GLUCOSE,POINT OF CARE 346 MG/DL (70-110)
[2021-01-23 11:35] VITALS: BP 109/74
[2021-01-23 12:38] VITALS: BP 107/70
[2021-01-23 16:11] VITALS: BP 119/60
[2021-01-23 16:39] LABS: GLUCOMETER DEV NAME(LOC) 3E.I 2; GLUCOSE,POINT OF CARE 196 MG/DL (70-110)
[2021-01-23] MEDS: DIVALPROEX SODIUM 500 MG ER TABLET PO SCH (20:15)
[2021-01-23] MEDS: ROPINIRole HCL 1 MG TABLET PO SCH (20:15)
[2021-01-23] MEDS: QUEtiapine FUMARATE 200 MG TABLET PO SCH (20:15)
[2021-01-23] MEDS: INSULIN GLARGINE,HUM.REC.ANLOG 100 UNITS/ML SQ SCH ×2 (20:19→22:21)
[2021-01-23 20:40] LABS: GLUCOMETER DEV NAME(LOC) 3E.I 2; GLUCOSE,POINT OF CARE 110 MG/DL (70-110)
[2021-01-23] MEDS: MELATONIN 5 MG TABLET PO SCH (22:23)
[2021-01-24 05:39] LABS: GLUCOMETER DEV NAME(LOC) 3E.I 2; GLUCOSE,POINT OF CARE 80 MG/DL (70-110)
[2021-01-24] MEDS: QUEtiapine FUMARATE 25 MG TABLET PO SCH ×3 (06:59→16:50)
[2021-01-24] MEDS: MetFORMIN HCL 500 MG TABLET PO SCH ×2 (06:59→16:50)
[2021-01-24] MEDS: SULFAMETHOX/TRIMETH DS 800-160 MG/TABLET PO SCH ×2 (08:00→16:49)
[2021-01-24] MEDS: TRIHEXYPHENIDYL HCL 2 MG TABLET PO SCH ×3 (08:00→16:49)
[2021-01-24] MEDS: DOXYCYCLINE HYCLATE 100 MG TABLET PO SCH ×2 (08:00→16:50)
[2021-01-24] MEDS: THIAMINE 100 MG TABLET PO SCH ×2 (08:01→16:50)
[2021-01-24] MEDS: MULTIVITAMINS WITH MINERALS, THERAPEUTIC TABLET PO SCH (08:01)
[2021-01-24] MEDS: DiphenhydrAMINE HCL 25 MG CAPSULE PO SCH ×3 (08:01→16:50)
[2021-01-24] MEDS: NALTREXONE HCL 50 MG TABLET PO SCH (08:01)
[2021-01-24] MEDS: OMEGA-3/DHA/EPA/FISH OIL 1,000 MG CAPSULE PO SCH (08:01)
[2021-01-24] MEDS: FOLIC ACID 1 MG TABLET PO SCH (08:01)
[2021-01-24] MEDS: SERTRALINE HCL 100 MG TABLET PO SCH (08:01)
[2021-01-24] MEDS: LORazepam 2 MG TABLET PO PRN ×2 (08:02→20:55)
[2021-01-24] MEDS: MUPIROCIN CALCIUM 2% 22 GM OINTMENT TP SCH (08:02)
[2021-01-24 08:26] VITALS: BP 112/65
[2021-01-24 11:26] LABS: GLUCOMETER DEV NAME(LOC) 3E.I 2; GLUCOSE,POINT OF CARE 127 MG/DL (70-110)
[2021-01-24] MEDS: LIDOCAINE 2% 30 ML JELLY TP PRN (12:36)
[2021-01-24 16:00] VITALS: BP 138/82
[2021-01-24 17:10] LABS: GLUCOMETER DEV NAME(LOC) 3E.I 2; GLUCOSE,POINT OF CARE 139 MG/DL (70-110)
[2021-01-24 17:56] VITALS: BP 126/77
[2021-01-24] MEDS: TraMADol HCL 50 MG TABLET PO PRN (17:56)
[2021-01-24] MEDS ORDERED: PALIPERIDONE PALMITATE 234 MG/1.5 ML SYRINGE IM ONE (18:45)
[2021-01-24] MEDS ORDERED: FLUPHENAZINE HCL 5 MG/ML PO PRN (20:15)
[2021-01-24] MEDS: DiphenhydrAMINE HCL 25 MG/10 ML ELIXIR UDCUP PO SCH (20:45)
[2021-01-24 21:11] LABS: GLUCOMETER DEV NAME(LOC) 3E.I 2; GLUCOSE,POINT OF CARE 169 MG/DL (70-110)
[2021-01-24] MEDS: INSULIN GLARGINE,HUM.REC.ANLOG 100 UNITS/ML SQ SCH (21:52)
[2021-01-24] MEDS: INSULIN LISPRO 100 UNITS/ML SQ PRN (21:53)
[2021-01-25 05:00] VITALS: BP 120/80
[2021-01-25] MEDS: TraMADol HCL 50 MG TABLET PO PRN (05:03)
[2021-01-25 05:14] LABS: GLUCOMETER DEV NAME(LOC) 3E.I 2; GLUCOSE,POINT OF CARE 90 MG/DL (70-110)
[2021-01-25] MEDS: MetFORMIN HCL 500 MG TABLET PO SCH ×2 (06:48→17:37)
[2021-01-25] MEDS: INSULIN LISPRO 100 UNITS/ML SQ PRN ×3 (06:48→20:52)
[2021-01-25] MEDS: FLUoxetine HCL 20 MG/5 ML SOLUTION ORAL.SYG PO SCH (08:50)
[2021-01-25] MEDS: DiphenhydrAMINE HCL 25 MG/10 ML ELIXIR UDCUP PO SCH ×4 (08:50→20:54)
[2021-01-25] MEDS: FOLIC ACID 1 MG TABLET PO SCH (08:51)
[2021-01-25] MEDS: FLUPHENAZINE HCL 5 MG/ML PO SCH ×3 (08:53→16:30)
[2021-01-25] MEDS: SULFAMETHOX/TRIMETH DS 800-160 MG/TABLET PO SCH ×2 (08:53→16:29)
[2021-01-25] MEDS: MULTIVITAMINS WITH MINERALS, THERAPEUTIC TABLET PO SCH (08:53)
[2021-01-25] MEDS: DOXYCYCLINE HYCLATE 100 MG TABLET PO SCH ×2 (08:53→16:29)
[2021-01-25] MEDS: NALTREXONE HCL 50 MG TABLET PO SCH (08:53)
[2021-01-25] MEDS: THIAMINE 100 MG TABLET PO SCH ×2 (08:53→17:37)
[2021-01-25] MEDS: QUEtiapine FUMARATE 100 MG TABLET PO PRN (09:22)
[2021-01-25 09:25] VITALS: BP 118/56
[2021-01-25] MEDS: LORazepam 2 MG TABLET PO PRN (10:29)
[2021-01-25 16:35] LABS: GLUCOMETER DEV NAME(LOC) 3E.C; GLUCOSE,POINT OF CARE 190 MG/DL (70-110)
[2021-01-25 17:04] VITALS: BP 101/62
[2021-01-25] MEDS ORDERED: LORazepam 2 MG/ML VIAL IM ONE (18:45)
[2021-01-25] MEDS ORDERED: FluPHENAZine HCL 2.5 MG/ML INJ IM ONE (18:45)
[2021-01-25] MEDS: INSULIN GLARGINE,HUM.REC.ANLOG 100 UNITS/ML SQ SCH (20:53)
[2021-01-25 20:56] LABS: GLUCOMETER DEV NAME(LOC) 3E.C; GLUCOSE,POINT OF CARE 249 MG/DL (70-110)
[2021-01-26 06:57] LABS: GLUCOMETER DEV NAME(LOC) 3E.C; GLUCOSE,POINT OF CARE 54 MG/DL (70-110)
[2021-01-26 06:57] LABS: GLUCOMETER DEV NAME(LOC) 3E.C; GLUCOSE,POINT OF CARE 165 MG/DL (70-110)
[2021-01-26] MEDS: FLUoxetine HCL 20 MG/5 ML SOLUTION ORAL.SYG PO SCH (07:45)
[2021-01-26] MEDS: DiphenhydrAMINE HCL 25 MG/10 ML ELIXIR UDCUP PO SCH ×4 (07:45→20:43)
[2021-01-26] MEDS: MetFORMIN HCL 500 MG TABLET PO SCH ×2 (07:45→17:22)
[2021-01-26] MEDS: DOXYCYCLINE HYCLATE 100 MG TABLET PO SCH ×2 (07:46→16:04)
[2021-01-26] MEDS: NALTREXONE HCL 50 MG TABLET PO SCH (07:46)
[2021-01-26] MEDS: QUEtiapine FUMARATE 100 MG TABLET PO PRN (07:49)
[2021-01-26] MEDS: MULTIVITAMINS WITH MINERALS, THERAPEUTIC TABLET PO SCH (07:49)
[2021-01-26] MEDS: SULFAMETHOX/TRIMETH DS 800-160 MG/TABLET PO SCH ×2 (07:49→16:02)
[2021-01-26] MEDS: LORazepam 2 MG TABLET PO PRN (07:49)
[2021-01-26] MEDS: THIAMINE 100 MG TABLET PO SCH ×2 (07:49→16:02)
[2021-01-26] MEDS: FOLIC ACID 1 MG TABLET PO SCH (07:49)
[2021-01-26] MEDS: FLUPHENAZINE HCL 5 MG/ML PO SCH ×3 (07:53→16:03)
[2021-01-26 08:00] VITALS: BP 98/53
[2021-01-26 11:39] LABS: GLUCOMETER DEV NAME(LOC) 3E.C; GLUCOSE,POINT OF CARE 112 MG/DL (70-110)
[2021-01-26 16:53] VITALS: BP 108/69
[2021-01-26 17:00] LABS: GLUCOMETER DEV NAME(LOC) 3E.C; GLUCOSE,POINT OF CARE 144 MG/DL (70-110)
[2021-01-26] MEDS: INSULIN LISPRO 100 UNITS/ML SQ PRN (17:15)
[2021-01-26] MEDS ORDERED: LORazepam 2 MG/ML VIAL IM ONE (18:30)
[2021-01-26] MEDS: INSULIN GLARGINE,HUM.REC.ANLOG 100 UNITS/ML SQ SCH (20:38)
[2021-01-26 20:45] LABS: GLUCOMETER DEV NAME(LOC) 3E.C; GLUCOSE,POINT OF CARE 121 MG/DL (70-110)
[2021-01-27 06:35] LABS: GLUCOMETER DEV NAME(LOC) 3E.C; GLUCOSE,POINT OF CARE 73 MG/DL (70-110)
[2021-01-27 08:00] VITALS: BP 103/58
[2021-01-27] MEDS: DiphenhydrAMINE HCL 25 MG/10 ML ELIXIR UDCUP PO SCH ×4 (10:29→20:59)
[2021-01-27] MEDS: MetFORMIN HCL 500 MG TABLET PO SCH ×2 (10:29→17:32)
[2021-01-27] MEDS: DOXYCYCLINE HYCLATE 100 MG TABLET PO SCH ×2 (10:29→16:03)
[2021-01-27] MEDS: NALTREXONE HCL 50 MG TABLET PO SCH (10:29)
[2021-01-27] MEDS: FLUoxetine HCL 20 MG/5 ML SOLUTION ORAL.SYG PO SCH (10:31)
[2021-01-27] MEDS: FLUPHENAZINE HCL 5 MG/ML PO SCH ×3 (10:32→16:05)
[2021-01-27] MEDS: QUEtiapine FUMARATE 100 MG TABLET PO PRN ×2 (10:33→16:14)
[2021-01-27] MEDS: SULFAMETHOX/TRIMETH DS 800-160 MG/TABLET PO SCH ×2 (10:34→16:03)
[2021-01-27] MEDS: FOLIC ACID 1 MG TABLET PO SCH (10:34)
[2021-01-27] MEDS: THIAMINE 100 MG TABLET PO SCH ×2 (10:34→16:06)
[2021-01-27] MEDS: MULTIVITAMINS WITH MINERALS, THERAPEUTIC TABLET PO SCH (10:34)
[2021-01-27] MEDS: LORazepam 2 MG TABLET PO PRN (10:35)
[2021-01-27 10:57] LABS: GLUCOMETER DEV NAME(LOC) 3E.C; GLUCOSE,POINT OF CARE 177 MG/DL (70-110)
[2021-01-27 16:20] LABS: GLUCOMETER DEV NAME(LOC) 3E.C; GLUCOSE,POINT OF CARE 117 MG/DL (70-110)
[2021-01-27 17:07] VITALS: BP 101/76
[2021-01-27] MEDS ORDERED: LORazepam 2 MG/ML VIAL IM ONE (18:45)
[2021-01-27] MEDS ORDERED: QUEtiapine FUMARATE 100 MG TABLET PO PRN (18:45)
[2021-01-27 20:26] VITALS: BP 93/60
[2021-01-27 20:39] LABS: GLUCOMETER DEV NAME(LOC) 3E.C; GLUCOSE,POINT OF CARE 169 MG/DL (70-110)
[2021-01-27] MEDS: INSULIN LISPRO 100 UNITS/ML SQ PRN (20:56)
[2021-01-27] MEDS: INSULIN GLARGINE,HUM.REC.ANLOG 100 UNITS/ML SQ SCH (20:56)
[2021-01-28] MEDS: MetFORMIN HCL 500 MG TABLET PO SCH ×2 (06:58→16:57)
[2021-01-28 07:06] LABS: GLUCOMETER DEV NAME(LOC) 3E.C; GLUCOSE,POINT OF CARE 63 MG/DL (70-110)
[2021-01-28 07:06] LABS: GLUCOMETER DEV NAME(LOC) 3E.C; GLUCOSE,POINT OF CARE 92 MG/DL (70-110)
[2021-01-28 08:00] VITALS: BP 106/68
[2021-01-28] MEDS: DiphenhydrAMINE HCL 25 MG/10 ML ELIXIR UDCUP PO SCH ×4 (08:02→20:57)
[2021-01-28] MEDS: NALTREXONE HCL 50 MG TABLET PO SCH (08:03)
[2021-01-28] MEDS: DOXYCYCLINE HYCLATE 100 MG TABLET PO SCH ×2 (08:03→16:06)
[2021-01-28] MEDS: FLUoxetine HCL 20 MG/5 ML SOLUTION ORAL.SYG PO SCH (08:03)
[2021-01-28] MEDS: QUEtiapine FUMARATE 100 MG TABLET PO PRN ×3 (08:05→18:41)
[2021-01-28] MEDS: MULTIVITAMINS WITH MINERALS, THERAPEUTIC TABLET PO SCH (08:05)
[2021-01-28] MEDS: LORazepam 2 MG TABLET PO PRN ×2 (08:05→14:08)
[2021-01-28] MEDS: TraMADol HCL 50 MG TABLET PO PRN (08:06)
[2021-01-28] MEDS ORDERED: PALIPERIDONE PALMITATE 156 MG/ML SYRINGE IM ONE (09:00)
[2021-01-28] MEDS: INSULIN LISPRO 100 UNITS/ML SQ PRN ×3 (11:11→21:01)
[2021-01-28 11:22] LABS: GLUCOMETER DEV NAME(LOC) 3E.C; GLUCOSE,POINT OF CARE 196 MG/DL (70-110)
[2021-01-28] MEDS ORDERED: QUEtiapine FUMARATE 200 MG TABLET PO SCH (12:30)
[2021-01-28 16:39] VITALS: BP 116/81
[2021-01-28 16:59] LABS: GLUCOMETER DEV NAME(LOC) 3E.C; GLUCOSE,POINT OF CARE 178 MG/DL (70-110)
[2021-01-28] MEDS ORDERED: LORazepam 2 MG/ML VIAL IM ONE (18:45)
[2021-01-28 20:49] VITALS: BP 106/62
[2021-01-28 21:00] LABS: GLUCOMETER DEV NAME(LOC) 3E.C; GLUCOSE,POINT OF CARE 189 MG/DL (70-110)
[2021-01-28] MEDS: INSULIN GLARGINE,HUM.REC.ANLOG 100 UNITS/ML SQ SCH (21:01)
[2021-01-29 06:39] LABS: GLUCOMETER DEV NAME(LOC) 3E.C; GLUCOSE,POINT OF CARE 91 MG/DL (70-110)
[2021-01-29] MEDS: INSULIN LISPRO 100 UNITS/ML SQ PRN ×3 (07:01→17:27)
[2021-01-29] MEDS: MetFORMIN HCL 500 MG TABLET PO SCH ×2 (07:01→17:19)
[2021-01-29 08:00] VITALS: BP 137/82
[2021-01-29 08:35] VITALS: BP 137/82
[2021-01-29] MEDS: DiphenhydrAMINE HCL 25 MG/10 ML ELIXIR UDCUP PO SCH ×4 (08:35→20:26)
[2021-01-29] MEDS: NALTREXONE HCL 50 MG TABLET PO SCH (08:36)
[2021-01-29] MEDS: MULTIVITAMINS WITH MINERALS, THERAPEUTIC TABLET PO SCH (08:36)
[2021-01-29] MEDS: DOXYCYCLINE HYCLATE 100 MG TABLET PO SCH ×2 (08:36→16:04)
[2021-01-29] MEDS: FLUoxetine HCL 20 MG/5 ML SOLUTION ORAL.SYG PO SCH (08:36)
[2021-01-29] MEDS: LORazepam 2 MG TABLET PO PRN ×2 (08:36→12:57)
[2021-01-29] MEDS: TraMADol HCL 50 MG TABLET PO PRN (08:36)
[2021-01-29] MEDS: QUEtiapine FUMARATE 100 MG TABLET PO PRN ×2 (08:36→17:54)
[2021-01-29 11:29] LABS: GLUCOMETER DEV NAME(LOC) 3E.C; GLUCOSE,POINT OF CARE 195 MG/DL (70-110)
[2021-01-29] MEDS: QUEtiapine FUMARATE 200 MG TABLET PO SCH (12:57)
[2021-01-29 16:10] VITALS: BP 132/79
[2021-01-29] MEDS: ACETAMINOPHEN 325 MG TABLET PO PRN (16:10)
[2021-01-29 16:48] VITALS: BP 136/77
[2021-01-29 17:26] LABS: GLUCOMETER DEV NAME(LOC) 3E.C; GLUCOSE,POINT OF CARE 301 MG/DL (70-110)
[2021-01-29 18:22] LABS: COVID AG,FIA SOURCE NASOPHARYNGEAL
[2021-01-29] MEDS ORDERED: TraZODone HCL 100 MG TABLET PO PRN (18:30)
[2021-01-29] MEDS: TraZODone HCL 100 MG TABLET PO SCH (20:26)
[2021-01-29] MEDS: INSULIN GLARGINE,HUM.REC.ANLOG 100 UNITS/ML SQ SCH (20:29)
[2021-01-29 20:42] LABS: GLUCOMETER DEV NAME(LOC) 3E.C; GLUCOSE,POINT OF CARE 132 MG/DL (70-110)
[2021-01-30] MEDS: LORazepam 2 MG TABLET PO PRN ×4 (00:38→20:17)
[2021-01-30] MEDS: MetFORMIN HCL 500 MG TABLET PO SCH ×2 (06:30→16:39)
[2021-01-30 06:33] LABS: GLUCOMETER DEV NAME(LOC) 3E.C; GLUCOSE,POINT OF CARE 173 MG/DL (70-110)
[2021-01-30] MEDS: INSULIN LISPRO 100 UNITS/ML SQ PRN ×3 (06:35→17:03)
[2021-01-30 08:32] VITALS: BP 101/67
[2021-01-30] MEDS: QUEtiapine FUMARATE 100 MG TABLET PO PRN ×2 (08:50→16:04)
[2021-01-30] MEDS: DOXYCYCLINE HYCLATE 100 MG TABLET PO SCH ×2 (09:00→16:04)
[2021-01-30] MEDS: FLUoxetine HCL 20 MG/5 ML SOLUTION ORAL.SYG PO SCH (09:00)
[2021-01-30] MEDS: NALTREXONE HCL 50 MG TABLET PO SCH (09:00)
[2021-01-30] MEDS: DiphenhydrAMINE HCL 25 MG/10 ML ELIXIR UDCUP PO SCH ×4 (09:00→20:17)
[2021-01-30 11:26] LABS: GLUCOMETER DEV NAME(LOC) 3E.C; GLUCOSE,POINT OF CARE 207 MG/DL (70-110)
[2021-01-30] MEDS: MULTIVITAMINS WITH MINERALS, THERAPEUTIC TABLET PO SCH (12:13)
[2021-01-30] MEDS: QUEtiapine FUMARATE 200 MG TABLET PO SCH (12:15)
[2021-01-30] MEDS: TraMADol HCL 50 MG TABLET PO PRN (16:28)
[2021-01-30 17:02] LABS: GLUCOMETER DEV NAME(LOC) 3E.C; GLUCOSE,POINT OF CARE 177 MG/DL (70-110)
[2021-01-30] MEDS: TraZODone HCL 100 MG TABLET PO SCH (20:17)
[2021-01-30] MEDS: INSULIN GLARGINE,HUM.REC.ANLOG 100 UNITS/ML SQ SCH (20:18)
[2021-01-30 20:35] LABS: GLUCOMETER DEV NAME(LOC) 3E.C; GLUCOSE,POINT OF CARE 88 MG/DL (70-110)
[2021-01-31 06:23] LABS: GLUCOMETER DEV NAME(LOC) 3E.C; GLUCOSE,POINT OF CARE 94 MG/DL (70-110)
[2021-01-31 06:45] VITALS: BP 119/78
[2021-01-31] MEDS: LORazepam 2 MG TABLET PO PRN (06:45)
[2021-01-31] MEDS: MetFORMIN HCL 500 MG TABLET PO SCH ×2 (06:45→16:09)
[2021-01-31] MEDS: TraMADol HCL 50 MG TABLET PO PRN ×2 (06:45→16:27)
[2021-01-31] MEDS: NALTREXONE HCL 50 MG TABLET PO SCH (08:01)
[2021-01-31] MEDS: QUEtiapine FUMARATE 100 MG TABLET PO PRN ×2 (08:01→18:27)
[2021-01-31] MEDS: DiphenhydrAMINE HCL 25 MG/10 ML ELIXIR UDCUP PO SCH ×5 (08:01→21:56)
[2021-01-31] MEDS: MULTIVITAMINS WITH MINERALS, THERAPEUTIC TABLET PO SCH (08:01)
[2021-01-31] MEDS: FLUoxetine HCL 20 MG/5 ML SOLUTION ORAL.SYG PO SCH (08:03)
[2021-01-31] MEDS: DOXYCYCLINE HYCLATE 100 MG TABLET PO SCH ×2 (08:06→16:09)
[2021-01-31 08:57] VITALS: BP 118/71
[2021-01-31 12:06] LABS: GLUCOMETER DEV NAME(LOC) 3E.C; GLUCOSE,POINT OF CARE 204 MG/DL (70-110)
[2021-01-31] MEDS: INSULIN LISPRO 100 UNITS/ML SQ PRN ×2 (12:09→17:20)
[2021-01-31] MEDS: QUEtiapine FUMARATE 200 MG TABLET PO SCH (13:07)
[2021-01-31 16:00] VITALS: BP 101/70
[2021-01-31 18:29] LABS: GLUCOMETER DEV NAME(LOC) 3E.C; GLUCOSE,POINT OF CARE 322 MG/DL (70-110)
[2021-01-31 18:45] VITALS: BP 93/70
[2021-01-31] MEDS: LORazepam 2 MG/ML VIAL IM ONE ×2 (19:08→20:22)
[2021-01-31] MEDS: TraZODone HCL 100 MG TABLET PO SCH (20:14)
[2021-01-31 20:20] VITALS: BP 126/72
[2021-01-31 20:46] LABS: GLUCOMETER DEV NAME(LOC) 3E.C; GLUCOSE,POINT OF CARE 121 MG/DL (70-110)
[2021-01-31] MEDS: INSULIN GLARGINE,HUM.REC.ANLOG 100 UNITS/ML SQ SCH (21:00)
[2021-02-01] MEDS: MetFORMIN HCL 500 MG TABLET PO SCH ×2 (06:56→17:43)
[2021-02-01] MEDS: INSULIN LISPRO 100 UNITS/ML SQ PRN ×4 (06:57→20:54)
[2021-02-01 07:09] LABS: GLUCOMETER DEV NAME(LOC) 3E.C; GLUCOSE,POINT OF CARE 200 MG/DL (70-110)
[2021-02-01] MEDS: DiphenhydrAMINE HCL 25 MG/10 ML ELIXIR UDCUP PO SCH ×4 (07:59→20:46)
[2021-02-01] MEDS: MULTIVITAMINS WITH MINERALS, THERAPEUTIC TABLET PO SCH (08:01)
[2021-02-01 08:02] VITALS: BP 113/70
[2021-02-01] MEDS: DOXYCYCLINE HYCLATE 100 MG TABLET PO SCH (08:02)
[2021-02-01] MEDS: NALTREXONE HCL 50 MG TABLET PO SCH (08:02)
[2021-02-01] MEDS: TraMADol HCL 50 MG TABLET PO PRN (08:02)
[2021-02-01] MEDS: FLUoxetine HCL 20 MG/5 ML SOLUTION ORAL.SYG PO SCH (08:07)
[2021-02-01 11:16] LABS: GLUCOMETER DEV NAME(LOC) 3E.C; GLUCOSE,POINT OF CARE 311 MG/DL (70-110)
[2021-02-01] MEDS ORDERED: QUEtiapine FUMARATE 200 MG TABLET PO SCH (12:30)
[2021-02-01] MEDS ORDERED: LORazepam 2 MG/ML VIAL IM ONE (14:15)
[2021-02-01] MEDS ORDERED: LORazepam 2 MG/ML VIAL ONE (15:03)
[2021-02-01 16:42] LABS: GLUCOMETER DEV NAME(LOC) 3E.C; GLUCOSE,POINT OF CARE 209 MG/DL (70-110)
[2021-02-01 16:57] VITALS: BP 123/67
[2021-02-01] MEDS: TraZODone HCL 100 MG TABLET PO SCH (20:46)
[2021-02-01] MEDS: GABAPENTIN 300 MG CAPSULE PO SCH (20:46)
[2021-02-01] MEDS: INSULIN GLARGINE,HUM.REC.ANLOG 100 UNITS/ML SQ SCH (20:54)
[2021-02-01 21:02] LABS: GLUCOMETER DEV NAME(LOC) 3E.C; GLUCOSE,POINT OF CARE 204 MG/DL (70-110)
[2021-02-02] MEDS: MetFORMIN HCL 500 MG TABLET PO SCH ×2 (06:57→16:31)
[2021-02-02 06:59] LABS: GLUCOMETER DEV NAME(LOC) 3E.C; GLUCOSE,POINT OF CARE 143 MG/DL (70-110)
[2021-02-02] MEDS: INSULIN LISPRO 100 UNITS/ML SQ PRN ×2 (07:06→17:21)
[2021-02-02] MEDS: DiphenhydrAMINE HCL 25 MG/10 ML ELIXIR UDCUP PO SCH ×4 (07:59→21:58)
[2021-02-02 08:00] VITALS: BP 107/79
[2021-02-02] MEDS: LORazepam 2 MG TABLET PO PRN ×2 (08:00→17:59)
[2021-02-02] MEDS: GABAPENTIN 300 MG CAPSULE PO SCH ×4 (08:00→21:58)
[2021-02-02] MEDS: TraMADol HCL 50 MG TABLET PO PRN ×2 (08:00→18:00)
[2021-02-02] MEDS: MULTIVITAMINS WITH MINERALS, THERAPEUTIC TABLET PO SCH (08:00)
[2021-02-02] MEDS: FLUoxetine HCL 20 MG/5 ML SOLUTION ORAL.SYG PO SCH (08:00)
[2021-02-02] MEDS: NALTREXONE HCL 50 MG TABLET PO SCH (08:01)
[2021-02-02] MEDS: QUEtiapine FUMARATE 200 MG TABLET PO SCH (08:01)
[2021-02-02 10:37] LABS: GLUCOMETER DEV NAME(LOC) 3E.C; GLUCOSE,POINT OF CARE 107 MG/DL (70-110)
[2021-02-02] MEDS ORDERED: QUEtiapine FUMARATE 200 MG TABLET PO SCH (12:30)
[2021-02-02 16:48] LABS: GLUCOMETER DEV NAME(LOC) 3E.C; GLUCOSE,POINT OF CARE 175 MG/DL (70-110)
[2021-02-02 17:03] VITALS: BP 119/78
[2021-02-02] MEDS: QUEtiapine FUMARATE 100 MG TABLET PO PRN (17:59)
[2021-02-02] MEDS: INSULIN GLARGINE,HUM.REC.ANLOG 100 UNITS/ML SQ SCH (21:00)
[2021-02-02] MEDS: TraZODone HCL 100 MG TABLET PO SCH (21:58)
[2021-02-02 22:08] LABS: GLUCOMETER DEV NAME(LOC) 3E.C; GLUCOSE,POINT OF CARE 108 MG/DL (70-110)
[2021-02-03] MEDS: QUEtiapine FUMARATE 100 MG TABLET PO PRN (03:52)
[2021-02-03] MEDS: LORazepam 2 MG TABLET PO PRN ×2 (03:52→08:05)
[2021-02-03] MEDS: MetFORMIN HCL 500 MG TABLET PO SCH ×2 (06:53→16:58)
[2021-02-03] MEDS: INSULIN LISPRO 100 UNITS/ML SQ PRN ×3 (06:57→16:51)
[2021-02-03 07:01] LABS: GLUCOMETER DEV NAME(LOC) 3E.C; GLUCOSE,POINT OF CARE 191 MG/DL (70-110)
[2021-02-03] MEDS: GABAPENTIN 300 MG CAPSULE PO SCH ×4 (08:01→21:04)
[2021-02-03] MEDS: QUEtiapine FUMARATE 200 MG TABLET PO SCH (08:01)
[2021-02-03] MEDS: DiphenhydrAMINE HCL 25 MG/10 ML ELIXIR UDCUP PO SCH ×4 (08:01→21:02)
[2021-02-03] MEDS: MULTIVITAMINS WITH MINERALS, THERAPEUTIC TABLET PO SCH (08:01)
[2021-02-03] MEDS: FLUoxetine HCL 20 MG/5 ML SOLUTION ORAL.SYG PO SCH (08:02)
[2021-02-03] MEDS: NALTREXONE HCL 50 MG TABLET PO SCH (08:02)
[2021-02-03 09:16] VITALS: BP 114/74
[2021-02-03 11:24] LABS: GLUCOMETER DEV NAME(LOC) 3E.C; GLUCOSE,POINT OF CARE 234 MG/DL (70-110)
[2021-02-03] MEDS: QUEtiapine FUMARATE 300 MG TABLET PO SCH (12:37)
[2021-02-03 16:59] LABS: GLUCOMETER DEV NAME(LOC) 3E.C; GLUCOSE,POINT OF CARE 262 MG/DL (70-110)
[2021-02-03 17:11] VITALS: BP 108/64
[2021-02-03] MEDS ORDERED: FLUO20SO2 PO (20:20)
[2021-02-03] MEDS ORDERED: DIPH2510L PO (20:20)
[2021-02-03] MEDS ORDERED: GABA-1181 PO (20:20)
[2021-02-03] MEDS ORDERED: QUET200T29 PO (20:20)
[2021-02-03] MEDS ORDERED: TRAZ-257 PO (20:20)
[2021-02-03] MEDS ORDERED: NALT50TA PO (20:20)
[2021-02-03] MEDS ORDERED: QUET300T18 PO (20:20)
[2021-02-03] MEDS: INSULIN GLARGINE,HUM.REC.ANLOG 100 UNITS/ML SQ SCH (21:00)
[2021-02-03] MEDS: TraZODone HCL 100 MG TABLET PO SCH (21:05)
[2021-02-03 21:10] LABS: GLUCOMETER DEV NAME(LOC) 3E.C; GLUCOSE,POINT OF CARE 104 MG/DL (70-110)
[2021-02-04] MEDS: MetFORMIN HCL 500 MG TABLET PO SCH ×2 (06:43→16:55)
[2021-02-04] MEDS: INSULIN LISPRO 100 UNITS/ML SQ PRN ×3 (06:43→20:50)
[2021-02-04 06:56] LABS: GLUCOMETER DEV NAME(LOC) 3E.C; GLUCOSE,POINT OF CARE 225 MG/DL (70-110)
[2021-02-04 08:00] VITALS: BP 123/89
[2021-02-04] MEDS: FLUoxetine HCL 20 MG/5 ML SOLUTION ORAL.SYG PO SCH (08:58)
[2021-02-04] MEDS: NALTREXONE HCL 50 MG TABLET PO SCH (08:58)
[2021-02-04] MEDS: DiphenhydrAMINE HCL 25 MG/10 ML ELIXIR UDCUP PO SCH ×4 (08:58→20:13)
[2021-02-04] MEDS: GABAPENTIN 300 MG CAPSULE PO SCH ×4 (09:02→20:12)
[2021-02-04] MEDS: TraMADol HCL 50 MG TABLET PO PRN (09:03)
[2021-02-04] MEDS: LORazepam 2 MG TABLET PO PRN (09:03)
[2021-02-04] MEDS: MULTIVITAMINS WITH MINERALS, THERAPEUTIC TABLET PO SCH (09:03)
[2021-02-04] MEDS: QUEtiapine FUMARATE 200 MG TABLET PO SCH (09:03)
[2021-02-04 11:51] LABS: GLUCOMETER DEV NAME(LOC) 3E.C; GLUCOSE,POINT OF CARE 157 MG/DL (70-110)
[2021-02-04] MEDS: QUEtiapine FUMARATE 300 MG TABLET PO SCH (12:40)
[2021-02-04 16:48] VITALS: BP 126/81
[2021-02-04 17:13] LABS: GLUCOMETER DEV NAME(LOC) 3E.C; GLUCOSE,POINT OF CARE 131 MG/DL (70-110)
[2021-02-04] MEDS: TraZODone HCL 100 MG TABLET PO SCH (20:12)
[2021-02-04 20:39] LABS: GLUCOMETER DEV NAME(LOC) 3E.C; GLUCOSE,POINT OF CARE 154 MG/DL (70-110)
[2021-02-04] MEDS: INSULIN GLARGINE,HUM.REC.ANLOG 100 UNITS/ML SQ SCH (21:00)
[2021-02-05] MEDS: LORazepam 2 MG TABLET PO PRN ×3 (05:49→18:47)
[2021-02-05 06:07] LABS: GLUCOMETER DEV NAME(LOC) 3E.C; GLUCOSE,POINT OF CARE 145 MG/DL (70-110)
[2021-02-05] MEDS: INSULIN LISPRO 100 UNITS/ML SQ PRN ×4 (06:38→20:48)
[2021-02-05] MEDS: MetFORMIN HCL 500 MG TABLET PO SCH ×2 (06:38→17:30)
[2021-02-05] MEDS: GABAPENTIN 300 MG CAPSULE PO SCH ×4 (07:53→20:13)
[2021-02-05] MEDS: MULTIVITAMINS WITH MINERALS, THERAPEUTIC TABLET PO SCH (07:53)
[2021-02-05] MEDS: QUEtiapine FUMARATE 200 MG TABLET PO SCH (07:53)
[2021-02-05] MEDS: NALTREXONE HCL 50 MG TABLET PO SCH (07:54)
[2021-02-05] MEDS: DiphenhydrAMINE HCL 25 MG/10 ML ELIXIR UDCUP PO SCH ×4 (07:54→20:13)
[2021-02-05] MEDS: FLUoxetine HCL 20 MG/5 ML SOLUTION ORAL.SYG PO SCH (07:57)
[2021-02-05] MEDS: TraMADol HCL 50 MG TABLET PO PRN (07:59)
[2021-02-05 08:00] VITALS: BP 118/75
[2021-02-05 12:15] LABS: GLUCOMETER DEV NAME(LOC) 3E.C; GLUCOSE,POINT OF CARE 210 MG/DL (70-110)
[2021-02-05] MEDS: QUEtiapine FUMARATE 300 MG TABLET PO SCH (12:28)
[2021-02-05 14:11] LABS: COVID AG,FIA SOURCE NASOPHARYNGEAL
[2021-02-05 16:20] VITALS: BP 95/65
[2021-02-05 16:30] LABS: GLUCOMETER DEV NAME(LOC) 3E.C; GLUCOSE,POINT OF CARE 182 MG/DL (70-110)
[2021-02-05] MEDS: TraZODone HCL 100 MG TABLET PO SCH (20:13)
[2021-02-05 20:34] LABS: GLUCOMETER DEV NAME(LOC) 3E.C; GLUCOSE,POINT OF CARE 185 MG/DL (70-110)
[2021-02-05] MEDS: INSULIN GLARGINE,HUM.REC.ANLOG 100 UNITS/ML SQ SCH (20:47)
[2021-02-06 06:03] VITALS: BP 119/73
[2021-02-06] MEDS: TraMADol HCL 50 MG TABLET PO PRN (06:03)
[2021-02-06] MEDS: LORazepam 2 MG TABLET PO PRN (06:03)
[2021-02-06 06:17] LABS: GLUCOMETER DEV NAME(LOC) 3E.C; GLUCOSE,POINT OF CARE 204 MG/DL (70-110)
[2021-02-06] MEDS: MetFORMIN HCL 500 MG TABLET PO SCH ×2 (06:41→17:18)
[2021-02-06] MEDS: INSULIN LISPRO 100 UNITS/ML SQ PRN ×2 (06:43→16:38)
[2021-02-06] MEDS: GABAPENTIN 300 MG CAPSULE PO SCH ×4 (09:09→20:33)
[2021-02-06] MEDS: NALTREXONE HCL 50 MG TABLET PO SCH (09:09)
[2021-02-06] MEDS: MULTIVITAMINS WITH MINERALS, THERAPEUTIC TABLET PO SCH (09:09)
[2021-02-06] MEDS: DiphenhydrAMINE HCL 25 MG/10 ML ELIXIR UDCUP PO SCH ×4 (09:10→20:34)
[2021-02-06] MEDS: FLUoxetine HCL 20 MG/5 ML SOLUTION ORAL.SYG PO SCH (09:10)
[2021-02-06] MEDS: QUEtiapine FUMARATE 200 MG TABLET PO SCH (09:12)
[2021-02-06 09:22] VITALS: BP 100/66
[2021-02-06 10:42] LABS: GLUCOMETER DEV NAME(LOC) 3E.C; GLUCOSE,POINT OF CARE 140 MG/DL (70-110)
[2021-02-06] MEDS: QUEtiapine FUMARATE 300 MG TABLET PO SCH (13:09)
[2021-02-06 16:06] VITALS: BP 93/66
[2021-02-06 16:43] LABS: GLUCOMETER DEV NAME(LOC) 3E.C; GLUCOSE,POINT OF CARE 259 MG/DL (70-110)
[2021-02-06] MEDS: TraZODone HCL 100 MG TABLET PO SCH (20:34)
[2021-02-06 20:43] VITALS: BP 105/58
[2021-02-06 20:48] LABS: GLUCOMETER DEV NAME(LOC) 3E.C; GLUCOSE,POINT OF CARE 89 MG/DL (70-110)
[2021-02-06] MEDS: INSULIN GLARGINE,HUM.REC.ANLOG 100 UNITS/ML SQ SCH (20:55)
[2021-02-07 03:35] VITALS: BP 89/59
[2021-02-07] MEDS: LORazepam 2 MG TABLET PO PRN (05:12)
[2021-02-07] MEDS: TraMADol HCL 50 MG TABLET PO PRN (05:12)
[2021-02-07 05:13] VITALS: BP 119/80
[2021-02-07 05:30] LABS: GLUCOMETER DEV NAME(LOC) 3E.C; GLUCOSE,POINT OF CARE 237 MG/DL (70-110)
[2021-02-07] MEDS: MetFORMIN HCL 500 MG TABLET PO SCH (06:53)
[2021-02-07] MEDS: INSULIN LISPRO 100 UNITS/ML SQ PRN ×2 (06:54→11:16)
[2021-02-07] MEDS: FLUoxetine HCL 20 MG/5 ML SOLUTION ORAL.SYG PO SCH (08:05)
[2021-02-07] MEDS: DiphenhydrAMINE HCL 25 MG/10 ML ELIXIR UDCUP PO SCH ×2 (08:05→12:11)
[2021-02-07] MEDS: MULTIVITAMINS WITH MINERALS, THERAPEUTIC TABLET PO SCH (08:05)
[2021-02-07] MEDS: NALTREXONE HCL 50 MG TABLET PO SCH (08:06)
[2021-02-07] MEDS: QUEtiapine FUMARATE 200 MG TABLET PO SCH (08:06)
[2021-02-07] MEDS: GABAPENTIN 300 MG CAPSULE PO SCH ×2 (08:06→12:11)
[2021-02-07 09:02] VITALS: BP 126/82
[2021-02-07 11:28] LABS: GLUCOMETER DEV NAME(LOC) 3E.C; GLUCOSE,POINT OF CARE 122 MG/DL (70-110)
[2021-02-07] MEDS: QUEtiapine FUMARATE 300 MG TABLET PO SCH (12:11)
[2021-02-07] MEDS ORDERED: INSLAN SQ (13:30)
[2021-02-07] MEDS ORDERED: MULT-248 PO (13:52)
[2021-02-07] MEDS ORDERED: METF-960 PO (13:53)
== END 2021-02-07 15:45 | disposition home or self-care (01) | DRG 750 ==
LOC: 3EI 18:29 → 3EC 01-25 09:54
PROVIDERS: ADMIT Psychiatry & Neurology Psychiatry; ATTEND Psychiatry & Neurology Psychiatry
DX: F25.0 Schizoaffective disorder, bipolar type (principal); R13.10 Dysphagia, unspecified; E11.9 Type 2 diabetes mellitus without complications; E78.00 Pure hypercholesterolemia, unspecified; F17.210 Nicotine dependence, cigarettes, uncomplicated; E66.9 Obesity, unspecified; D50.9 Iron deficiency anemia, unspecified; L02.419 Cutaneous abscess of limb, unspecified; F41.8 Other specified anxiety disorders; G43.909 Migraine, unspecified, not intractable, without status migrainosus; G47.00 Insomnia, unspecified; G89.4 Chronic pain syndrome; M54.5 Low back pain; I10 Essential (primary) hypertension; J44.9 Chronic obstructive pulmonary disease, unspecified; K21.9 Gastro-esophageal reflux disease without esophagitis; R41.843 Psychomotor deficit; Z20.822 Contact with and (suspected) exposure to COVID-19; Z79.899 Other long term (current) drug therapy; Z88.8 Allergy status to other drugs, medicaments and biological substances; Z79.4 Long term (current) use of insulin; Z55.9 Problems related to education and literacy, unspecified; Z59.0 Homelessness; Z65.3 Problems related to other legal circumstances; Z91.19 Patient's noncompliance with other medical treatment and regimen; Z91.012 Allergy to eggs; Z68.37 Body mass index [BMI] 37.0-37.9, adult
CPT/HCPCS: 80053; 80061; 80164; 82306; 82962; 83036; 84439; 84443; 85025; 86592; 86593; 86780; 87081; 87426; 93005; 97162; 97165; 97535; A9575; J0561; J1815; J2060; J3490

== ENCOUNTER 2021-06-25 20:31 | Emergency (ER) | payer MEDICAID ==
[~2021-06-25] VITALS: Ht 162.6 cm; Wt 90.9 kg
[~2021-06-25 20:31] MED LIST changes: -BENZ1TAB10 PO; +DIPH2510L PO; -DIVA-112 PO; +FLUO20SO2 PO; +GABA-1181 PO; +INSLAN SQ; +METF-960 PO; +MULT-248 PO; +NALT50TA PO; +QUET200T30 PO; +QUET300T19 PO; -QUET300T2 PO; +TRAZ-257 PO
[2021-06-25] MEDS ORDERED: OLANZapine 5 MG TABLET PO ONE (21:45)
[2021-06-25 22:12] LABS: BASOPHILS % (AUTO) 0.8 % (0.0-2.0); EOSINOPHILS % (AUTO) 1.4 % (1.0-6.0); HEMATOCRIT 38.8 % (36-46); HEMOGLOBIN 12.6 g/dL (12.0-16.0); LYMPHOCYTES # (AUTO) 2.1 K/uL (1.0-4.8); LYMPHOCYTES % (AUTO) 27.5 % (22.0-44.0); MEAN CORPUSCULAR HEMOGLOBIN 29.2 pg (26.0-34.0); MEAN CORPUSCULAR HGB CONC 32.6 G/dL (31.0-37.0); MEAN CORPUSCULAR VOLUME 90 fL (80-100); MONOCYTES # (AUTO) 0.9 K/uL (0.1-1.0); MONOCYTES % (AUTO) 12.2 % (2.0-9.0); NEUTROPHILS # (AUTO) 4.4 K/uL (1.8-7.7); NEUTROPHILS % (AUTO) 58.1 % (40.0-70.0); PLATELET COUNT (AUTO) 395 K/uL (150-450); RED BLOOD CELL COUNT(AUTO) 4.32 MIL/uL (4.00-5.20); RED CELL DISTRIBUTION WIDTH 14.2 % (11.5-14.5)
[2021-06-25 22:31] LABS: ALANINE AMINOTRANSFERASE 27 U/L (12-78); ALBUMIN 4.1 g/dL (3.4-5.0); ALKALINE PHOSPHATASE 138 U/L (46-116); ANION GAP 14 mmol/L (8-16); ASPARTATE AMINOTRANSFERASE 33 U/L (15-37); BILIRUBIN,TOTAL 0.9 mg/dL (0.1-1.0); CALCIUM, TOTAL 9.2 mg/dL (8.8-10.5); CARBON DIOXIDE 26 mmol/L (22-29); CHLORIDE 105 mmol/L (98-107); CREATININE 1.05 mg/dL (0.60-1.30); GLOMERULAR FILTR. RATE CALC > 60 mL/min (>60); GLUCOSE,RANDOM 248 mg/dL (70-110); SODIUM SERUM 145 mmol/L (136-145); TOTAL PROTEIN, SERUM 8.7 g/dL (6.4-8.2); UREA NITROGEN, BLOOD 23 mg/dL (7-18)
[2021-06-25 22:33] LABS: POTASSIUM 2.9 mmol/L (3.5-5.1)
[2021-06-25 22:47] LABS: ACETAMINOPHEN < 2 mcg/mL (10-30)
[2021-06-25 23:09] LABS: SALICYLATE 0.5 mg/dL (2.8-20.0)
[2021-06-25] MEDS ORDERED: LORazepam 1 MG TABLET PO ONE (23:15)
[2021-06-25 23:28] LABS: APPEARANCE,URINE CLOUDY (CLEAR); GLUCOSE, URINE (UA) NEGATIVE (NEGATIVE); KETONES,URINE TRACE mg/dL (NEGATIVE); LEUKOCYTE ESTERASE ,URINE NEGATIVE (NEGATIVE); NITRATE,URINE NEGATIVE (NEGATIVE); OCCULT BLOOD,URINE TRACE (NEGATIVE); PH,URINE 5.5 (5.0-8.0); PROTEIN,URINE SEE CONFIRM (NEGATIVE)
[2021-06-25 23:29] LABS: BILIRUBIN,URINE PRELIM. POSITIVE (NEGATIVE)
[2021-06-25 23:34] LABS: AMPHET/METH SCREEN,URINE POSITIVE (NEGATIVE); BACTERIA,URINE Rare /HPF (None Seen); BARBITURATE SCREEN, URINE NEGATIVE (NEGATIVE); BENZODIAZEPINES SCREEN,URINE NEGATIVE (NEGATIVE); CANNABINOID SCREEN,URINE NEGATIVE (NEGATIVE); COCAINE SCREEN,URINE NEGATIVE (NEGATIVE); METHADONE SCREEN, URINE NEGATIVE (NEGATIVE); MUCUS,URINE Moderate LPF (None Seen); OPIATE SCREEN,URINE NEGATIVE (NEGATIVE); SQUAMOUS EPITHELIAL CELL,UR Moderate /LPF (None Seen)
[2021-06-25 23:35] LABS: SULFOSALICYLIC ACID,URINE 2+ (Negative)
[2021-06-25 23:48] LABS: PHENCYCLIDINE SCREEN,URINE NEGATIVE (NEGATIVE)
[2021-06-26] MEDS ORDERED: POTASSIUM CHLORIDE 20 MEQ ER TABLET PO ONE (00:30)
[2021-06-26 01:30] VITALS: BP 122/84
== END 2021-06-26 02:00 | disposition home or self-care (01) ==
LOC: EMS 20:37
DX: F20.0 Paranoid schizophrenia (principal); E87.6 Hypokalemia; E11.9 Type 2 diabetes mellitus without complications; Z79.84 Long term (current) use of oral hypoglycemic drugs; Z88.8 Allergy status to other drugs, medicaments and biological substances
CPT/HCPCS: 36415; 80053; 80307; 81001; 85025; 99284; G0480; 81002; G0481

== ENCOUNTER 2021-07-14 16:09 | Inpatient (IN) | payer MEDICAID ==
[~2021-07-14] VITALS: Ht 177.8 cm; Wt 94.4 kg
[~2021-07-14 16:09] MED LIST changes: +DIPH-966 PO; -DIPH2510L PO; +METF-1211 PO; -METF-960 PO
[2021-07-14] MEDS ORDERED: LORazepam 2 MG/ML VIAL IM ONE (16:45)
[2021-07-14] MEDS ORDERED: DiphenhydrAMINE HCL 50 MG/ML VIAL IM ONE (16:45)
[2021-07-14] MEDS ORDERED: HALOPERIDOL LACTATE 5 MG/ML VIAL IM ONE (16:45)
[2021-07-14 18:12] LABS: COVID AG,FIA SOURCE NASAL SWAB
[2021-07-14 18:35] LABS: BASOPHILS % (AUTO) 0.9 % (0.0-2.0); EOSINOPHILS % (AUTO) 1.1 % (1.0-6.0); HEMATOCRIT 40.5 % (36-46); HEMOGLOBIN 13.3 g/dL (12.0-16.0); LYMPHOCYTES # (AUTO) 2.2 K/uL (1.0-4.8); LYMPHOCYTES % (AUTO) 29.5 % (22.0-44.0); MEAN CORPUSCULAR HEMOGLOBIN 30.1 pg (26.0-34.0); MEAN CORPUSCULAR HGB CONC 32.8 G/dL (31.0-37.0); MEAN CORPUSCULAR VOLUME 92 fL (80-100); MONOCYTES % (AUTO) 13.1 % (2.0-9.0); NEUTROPHILS # (AUTO) 4.1 K/uL (1.8-7.7); NEUTROPHILS % (AUTO) 55.4 % (40.0-70.0); RED BLOOD CELL COUNT(AUTO) 4.42 MIL/uL (4.00-5.20)
[2021-07-14 18:36] LABS: ANION GAP 11 mmol/L (8-16); CALCIUM, TOTAL 9.4 mg/dL (8.8-10.5); CARBON DIOXIDE 26 mmol/L (22-29); CHLORIDE 103 mmol/L (98-107); CREATININE 0.81 mg/dL (0.60-1.30); GLOMERULAR FILTR. RATE CALC > 60 mL/min (>60); GLUCOSE,RANDOM 133 mg/dL (70-110); POTASSIUM 3.5 mmol/L (3.5-5.1); SODIUM SERUM 140 mmol/L (136-145); UREA NITROGEN, BLOOD 18 mg/dL (7-18)
[2021-07-14 18:54] LABS: PLATELET COUNT (AUTO) 270 K/uL (150-450)
[2021-07-14 19:01] LABS: ALANINE AMINOTRANSFERASE 21 U/L (12-78); ALKALINE PHOSPHATASE 121 U/L (46-116); ASPARTATE AMINOTRANSFERASE 27 U/L (15-37); BILIRUBIN,TOTAL 0.4 mg/dL (0.1-1.0); CREATINE KINASE, TOTAL ONLY 619 U/L (26-192); TOTAL PROTEIN, SERUM 8.3 g/dL (6.4-8.2)
[2021-07-15] MEDS ORDERED: HALOPERIDOL 5 MG TABLET PO PRN
[2021-07-15] MEDS ORDERED: INFLUENZA VIRUS VACCINE QVS 2021-22 (6MO+)/PF 60 MCG/0.5 ML SYRINGE IM. ONE (01:30)
[2021-07-15 02:35] LABS: CHOL/HDL RATIO 2.9 (3.9-5.7); CHOLESTEROL 217 mg/dL (131-200); HDL CHOLESTEROL 75 mg/dL (40-60); LDL CHOL (CALC.) 133 mg/dL (0-130); TRIGLYCERIDES 47 mg/dL (15-150)
[2021-07-15 04:54] VITALS: BP 135/62
[2021-07-15 08:09] VITALS: BP 129/68
[2021-07-15] MEDS ORDERED: GuaiFENesin/D-METHORPHAN [SUGAR-FREE] 200-20MG/10 ML SYRUP UDCUP PO PRN (11:30)
[2021-07-15] MEDS ORDERED: IBUPROFEN 400 MG TABLET PO PRN (11:30)
[2021-07-15] MEDS ORDERED: ALBUTEROL SULFATE HFA 90 MCG/PUFF 8 GM INHALER IH PRN (11:30)
[2021-07-15] MEDS ORDERED: CloNIDine HCL 0.1 MG TABLET PO PRN (11:30)
[2021-07-15] MEDS ORDERED: NICOTINE 14 MG/24 HOUR PATCH TD PRN (11:30)
[2021-07-15] MEDS ORDERED: ONDANSETRON HCL 4 MG TABLET PO PRN (11:30)
[2021-07-15] MEDS ORDERED: MAGNESIUM HYDROXIDE SUSPENSION 30 ML UDCUP PO PRN (11:30)
[2021-07-15] MEDS ORDERED: LOPERAMIDE HCL 2 MG CAPSULE PO PRN (11:30)
[2021-07-15] MEDS ORDERED: MAG HYDROX/AL HYDROX/SIMETH ES 30 ML SUSPENSION UDCUP PO PRN (11:30)
[2021-07-15] MEDS ORDERED: DOCUSATE SODIUM 100 MG CAPSULE PO PRN (11:30)
[2021-07-15] MEDS ORDERED: PETROLATUM,WHITE 28 GM JELLY TP PRN (11:30)
[2021-07-15] MEDS: LORazepam 1 MG TABLET PO PRN (14:10)
[2021-07-15 16:06] VITALS: BP 143/69
[2021-07-15] MEDS: QUEtiapine FUMARATE 200 MG TABLET PO SCH (20:10)
[2021-07-16 01:34] VITALS: BP 122/66
[2021-07-16 08:35] VITALS: BP 118/63
[2021-07-16] MEDS: LORazepam 1 MG TABLET PO PRN (09:01)
[2021-07-16] MEDS: OMEGA-3/DHA/EPA/FISH OIL 500 MG CAPSULE PO SCH (09:01)
[2021-07-16] MEDS: QUEtiapine FUMARATE 200 MG TABLET PO SCH (19:56)
[2021-07-17 00:28] VITALS: BP 112/68
[2021-07-17 07:29] LABS: HEMOGLOBIN A1C 7.9 % (3.8-5.6)
[2021-07-17 07:30] LABS: ALANINE AMINOTRANSFERASE 21 U/L (12-78); ALKALINE PHOSPHATASE 94 U/L (46-116); ANION GAP 4 mmol/L (8-16); ASPARTATE AMINOTRANSFERASE 18 U/L (15-37); BILIRUBIN,TOTAL 0.1 mg/dL (0.1-1.0); CALCIUM, TOTAL 8.7 mg/dL (8.8-10.5); CARBON DIOXIDE 30 mmol/L (22-29); CHLORIDE 105 mmol/L (98-107); CHOL/HDL RATIO 3.9 (3.9-5.7); CHOLESTEROL 181 mg/dL (131-200); CREATININE 0.64 mg/dL (0.60-1.30); GLOMERULAR FILTR. RATE CALC > 60 mL/min (>60); GLUCOSE,RANDOM 208 mg/dL (70-110); HDL CHOLESTEROL 47 mg/dL (40-60); LDL CHOL (CALC.) 115 mg/dL (0-130); SODIUM SERUM 139 mmol/L (136-145); TRIGLYCERIDES 94 mg/dL (15-150); UREA NITROGEN, BLOOD 17 mg/dL (7-18)
[2021-07-17 08:32] VITALS: BP 119/62
[2021-07-17] MEDS: LORazepam 1 MG TABLET PO PRN ×2 (08:36→13:15)
[2021-07-17] MEDS: MetFORMIN HCL 500 MG TABLET PO SCH (08:36)
[2021-07-17] MEDS: OMEGA-3/DHA/EPA/FISH OIL 500 MG CAPSULE PO SCH (08:36)
[2021-07-17 16:14] VITALS: BP 119/81
[2021-07-17] MEDS: QUEtiapine FUMARATE 200 MG TABLET PO SCH (20:17)
[2021-07-18 00:22] VITALS: BP 112/73
[2021-07-18] MEDS: MetFORMIN HCL 500 MG TABLET PO SCH (06:52)
[2021-07-18] MEDS: OMEGA-3/DHA/EPA/FISH OIL 500 MG CAPSULE PO SCH (08:12)
[2021-07-18] MEDS: LORazepam 1 MG TABLET PO PRN ×3 (08:12→17:03)
[2021-07-18 08:19] VITALS: BP 118/71
[2021-07-18 16:04] VITALS: BP 112/68
[2021-07-18 16:53] LABS: GLUCOMETER DEV NAME(LOC) BV3S.; GLUCOSE,POINT OF CARE 148 MG/DL (70-110)
[2021-07-18] MEDS: ACETAMINOPHEN 325 MG TABLET PO PRN (17:03)
[2021-07-18] MEDS: QUEtiapine FUMARATE 200 MG TABLET PO SCH (20:14)
[2021-07-18] MEDS: ZOLPIDEM TARTRATE 10 MG TABLET PO PRN (20:35)
[2021-07-19] MEDS: LORazepam 1 MG TABLET PO PRN ×4 (00:50→18:58)
[2021-07-19 01:10] VITALS: BP 132/72
[2021-07-19] MEDS: MetFORMIN HCL 500 MG TABLET PO SCH ×2 (06:36→16:21)
[2021-07-19] MEDS ORDERED: MetFORMIN HCL 500 MG TABLET PO SCH (07:00)
[2021-07-19 08:10] VITALS: BP 128/74
[2021-07-19] MEDS: OMEGA-3/DHA/EPA/FISH OIL 500 MG CAPSULE PO SCH (09:29)
[2021-07-19] MEDS: ACETAMINOPHEN 325 MG TABLET PO PRN (09:49)
[2021-07-19 16:08] VITALS: BP 113/70
[2021-07-19] MEDS: QUEtiapine FUMARATE 200 MG TABLET PO SCH (19:58)
[2021-07-19] MEDS ORDERED: QUEtiapine FUMARATE 100 MG TABLET PO ONE (20:00)
[2021-07-19] MEDS ORDERED: QUEtiapine FUMARATE 300 MG TABLET PO SCH (21:00)
[2021-07-19] MEDS ORDERED: TraZODone HCL 100 MG TABLET PO SCH (21:00)
[2021-07-19 21:58] LABS: GLUCOMETER DEV NAME(LOC) BV3S.; GLUCOSE,POINT OF CARE 276 MG/DL (70-110)
[2021-07-19] MEDS: ZOLPIDEM TARTRATE 10 MG TABLET PO PRN (22:01)
[2021-07-20 01:42] VITALS: BP 122/68
[2021-07-20] MEDS: MetFORMIN HCL 500 MG TABLET PO SCH (06:48)
[2021-07-20 08:24] VITALS: BP 122/86
[2021-07-20] MEDS: OMEGA-3/DHA/EPA/FISH OIL 500 MG CAPSULE PO SCH (08:39)
[2021-07-20] MEDS: LORazepam 1 MG TABLET PO PRN (11:01)
[2021-07-20] MEDS ORDERED: TRAZ-257 PO (12:25)
[2021-07-20] MEDS ORDERED: QUET300T2 PO (12:25)
[2021-07-20] MEDS ORDERED: METF-1211 PO (12:27)
== END 2021-07-20 17:11 | disposition home or self-care (01) | DRG 750 ==
LOC: EMS 16:13 → B3A 23:55 → MERGE 23:55
DX: F20.0 Paranoid schizophrenia (principal); M62.82 Rhabdomyolysis; F15.10 Other stimulant abuse, uncomplicated; F10.10 Alcohol abuse, uncomplicated; E78.5 Hyperlipidemia, unspecified; E66.9 Obesity, unspecified; R73.9 Hyperglycemia, unspecified; Z20.822 Contact with and (suspected) exposure to COVID-19; Z87.891 Personal history of nicotine dependence; Z59.00 Homelessness unspecified; Z79.899 Other long term (current) drug therapy; Z68.29 Body mass index [BMI] 29.0-29.9, adult
CPT/HCPCS: 80053; 80061; 82550; 82962; 83036; 85025; 99291; G0480; J1200; J1630; J2060

== ENCOUNTER 2021-07-26 03:03 | Inpatient (IN) | payer MEDICAID ==
[~2021-07-26] VITALS: Ht 160 cm; Wt 95.8 kg
[~2021-07-26 03:03] MED LIST changes: +QUET300T2 PO
[2021-07-26] MEDS ORDERED: LORazepam 2 MG/ML VIAL IM ONE ×2 (03:45→05:00)
[2021-07-26] MEDS ORDERED: ChlorproMAZINE HCL 50 MG/2 ML AMP IM ONE ×2 (03:45→05:00)
[2021-07-26] MEDS ORDERED: DiphenhydrAMINE HCL 50 MG/ML VIAL IM ONE (03:45)
[2021-07-26 04:58] LABS: COVID AG,FIA SOURCE NASOPHARYNGEAL
[2021-07-26 05:34] LABS: BASOPHILS % (AUTO) 0.5 % (0.0-2.0); EOSINOPHILS % (AUTO) 0 % (1.0-6.0); HEMATOCRIT 38.3 % (36-46); HEMOGLOBIN 12.6 g/dL (12.0-16.0); LYMPHOCYTES # (AUTO) 1.5 K/uL (1.0-4.8); LYMPHOCYTES % (AUTO) 11.3 % (22.0-44.0); MEAN CORPUSCULAR HEMOGLOBIN 29.9 pg (26.0-34.0); MEAN CORPUSCULAR HGB CONC 32.9 G/dL (31.0-37.0); MEAN CORPUSCULAR VOLUME 91 fL (80-100); MONOCYTES # (AUTO) 0.8 K/uL (0.1-1.0); MONOCYTES % (AUTO) 6.1 % (2.0-9.0); NEUTROPHILS # (AUTO) 11.2 K/uL (1.8-7.7); NEUTROPHILS % (AUTO) 82.1 % (40.0-70.0); PLATELET COUNT (AUTO) 336 K/uL (150-450); RED BLOOD CELL COUNT(AUTO) 4.23 MIL/uL (4.00-5.20); RED CELL DISTRIBUTION WIDTH 14.6 % (11.5-14.5)
[2021-07-26 05:35] LABS: GLUCOMETER DEV NAME(LOC) ERT.5; GLUCOSE,POINT OF CARE 140 MG/DL (70-110)
[2021-07-26 05:41] LABS: ANION GAP 18 mmol/L (8-16); CARBON DIOXIDE 22 mmol/L (22-29); CHLORIDE 107 mmol/L (98-107); CREATININE 1.07 mg/dL (0.60-1.30); GLOMERULAR FILTR. RATE CALC > 60 mL/min (>60); GLUCOSE,RANDOM 138 mg/dL (70-110); POTASSIUM 3.1 mmol/L (3.5-5.1); SODIUM SERUM 147 mmol/L (136-145); UREA NITROGEN, BLOOD 24 mg/dL (7-18)
[2021-07-26 05:56] LABS: ALANINE AMINOTRANSFERASE 20 U/L (12-78); ALBUMIN 4.3 g/dL (3.4-5.0); ALKALINE PHOSPHATASE 115 U/L (46-116); ASPARTATE AMINOTRANSFERASE 25 U/L (15-37); BILIRUBIN,TOTAL 0.6 mg/dL (0.1-1.0); CREATINE KINASE, TOTAL ONLY 543 U/L (26-192); TOTAL PROTEIN, SERUM 8.6 g/dL (6.4-8.2)
[2021-07-26] MEDS ORDERED: POTASSIUM CHLORIDE 20 MEQ ER TABLET PO ONE (06:00)
[2021-07-26] MEDS ORDERED: SODIUM CHLORIDE 0.9% 1,000 ML IV ONE (06:00)
[2021-07-26] MEDS: LORazepam 2 MG TABLET PO PRN ×2 (13:29→20:54)
[2021-07-26 19:31] VITALS: BP 118/72
[2021-07-27 06:06] LABS: POTASSIUM 4.1 mmol/L (3.5-5.1)
[2021-07-27] MEDS: MetFORMIN HCL 500 MG TABLET PO SCH ×2 (07:02→16:55)
[2021-07-27] MEDS ORDERED: MetFORMIN HCL 500 MG TABLET PO SCH (07:30)
[2021-07-27] MEDS ORDERED: DEXTROSE 50%-WATER 25 GM/50 ML SYRINGE IVP PRN (13:00)
[2021-07-27] MEDS ORDERED: NICOTINE 14 MG/24 HOUR PATCH TD PRN (13:45)
[2021-07-27] MEDS ORDERED: CloNIDine HCL 0.1 MG TABLET PO PRN (13:45)
[2021-07-27] MEDS ORDERED: DOCUSATE SODIUM 100 MG CAPSULE PO PRN (13:45)
[2021-07-27] MEDS ORDERED: PETROLATUM,WHITE 28 GM JELLY TP PRN (13:45)
[2021-07-27] MEDS ORDERED: LOPERAMIDE HCL 2 MG CAPSULE PO PRN (13:45)
[2021-07-27] MEDS ORDERED: ACETAMINOPHEN 325 MG TABLET PO PRN (13:45)
[2021-07-27] MEDS ORDERED: MAGNESIUM HYDROXIDE SUSPENSION 30 ML UDCUP PO PRN (13:45)
[2021-07-27] MEDS ORDERED: ALBUTEROL SULFATE HFA 90 MCG/PUFF 8 GM INHALER IH PRN (13:45)
[2021-07-27] MEDS ORDERED: ONDANSETRON HCL 4 MG TABLET PO PRN (13:45)
[2021-07-27] MEDS ORDERED: MAG HYDROX/AL HYDROX/SIMETH ES 30 ML SUSPENSION UDCUP PO PRN (13:45)
[2021-07-27 16:30] VITALS: BP 137/84
[2021-07-27] MEDS: OLANZapine 5 MG RAPDIS TABLET PO PRN (16:54)
[2021-07-27 17:11] LABS: GLUCOMETER DEV NAME(LOC) 3E.C; GLUCOSE,POINT OF CARE 196 MG/DL (70-110)
[2021-07-27] MEDS: LORazepam 2 MG TABLET PO PRN (17:44)
[2021-07-27] MEDS: INSULIN LISPRO 100 UNITS/ML SQ PRN ×2 (17:47→21:14)
[2021-07-27] MEDS: QUEtiapine FUMARATE 300 MG TABLET PO SCH (20:28)
[2021-07-27] MEDS: TraZODone HCL 100 MG TABLET PO SCH (20:28)
[2021-07-27 20:36] LABS: GLUCOMETER DEV NAME(LOC) 3E.C; GLUCOSE,POINT OF CARE 190 MG/DL (70-110)
[2021-07-28] MEDS: MetFORMIN HCL 500 MG TABLET PO SCH ×2 (06:54→16:56)
[2021-07-28] MEDS: INSULIN LISPRO 100 UNITS/ML SQ PRN ×3 (12:18→21:15)
[2021-07-28 12:24] LABS: GLUCOMETER DEV NAME(LOC) 3E.C; GLUCOSE,POINT OF CARE 220 MG/DL (70-110)
[2021-07-28] MEDS ORDERED: INFLUENZA VIRUS VACCINE QVS 2021-22 (6MO+)/PF 60 MCG/0.5 ML SYRINGE IM. ONE (13:15)
[2021-07-28 16:05] LABS: GLUCOMETER DEV NAME(LOC) 3E.C; GLUCOSE,POINT OF CARE 152 MG/DL (70-110)
[2021-07-28 16:06] VITALS: BP 110/70
[2021-07-28] MEDS: MUPIROCIN CALCIUM 2% 22 GM OINTMENT NASAL SCH (16:56)
[2021-07-28] MEDS: LORazepam 2 MG TABLET PO PRN (19:29)
[2021-07-28] MEDS: QUEtiapine FUMARATE 300 MG TABLET PO SCH (20:31)
[2021-07-28] MEDS: TraZODone HCL 100 MG TABLET PO SCH (20:31)
[2021-07-28 21:23] LABS: GLUCOMETER DEV NAME(LOC) 3E.C; GLUCOSE,POINT OF CARE 152 MG/DL (70-110)
[2021-07-29] MEDS: ZOLPIDEM TARTRATE 10 MG TABLET PO PRN (02:15)
[2021-07-29 06:29] LABS: GLUCOMETER DEV NAME(LOC) 3E.C; GLUCOSE,POINT OF CARE 207 MG/DL (70-110)
[2021-07-29] MEDS: MetFORMIN HCL 500 MG TABLET PO SCH ×2 (06:35→16:47)
[2021-07-29] MEDS: INSULIN LISPRO 100 UNITS/ML SQ PRN ×3 (06:41→20:59)
[2021-07-29 08:11] VITALS: BP 138/83
[2021-07-29] MEDS: MULTIVITAMINS WITH MINERALS, THERAPEUTIC TABLET PO SCH (10:00)
[2021-07-29] MEDS: MUPIROCIN CALCIUM 2% 22 GM OINTMENT NASAL SCH ×2 (10:00→16:45)
[2021-07-29 12:01] LABS: GLUCOMETER DEV NAME(LOC) 3E.C; GLUCOSE,POINT OF CARE 116 MG/DL (70-110)
[2021-07-29 16:29] VITALS: BP 129/76
[2021-07-29 16:52] LABS: GLUCOMETER DEV NAME(LOC) 3E.C; GLUCOSE,POINT OF CARE 141 MG/DL (70-110)
[2021-07-29] MEDS: QUEtiapine FUMARATE 300 MG TABLET PO SCH (21:02)
[2021-07-29] MEDS: TraZODone HCL 100 MG TABLET PO SCH (21:02)
[2021-07-29 21:12] LABS: GLUCOMETER DEV NAME(LOC) 3E.C; GLUCOSE,POINT OF CARE 167 MG/DL (70-110)
[2021-07-30] MEDS: MetFORMIN HCL 500 MG TABLET PO SCH ×2 (06:49→17:41)
[2021-07-30] MEDS: INSULIN LISPRO 100 UNITS/ML SQ PRN ×4 (06:50→20:59)
[2021-07-30 06:56] LABS: GLUCOMETER DEV NAME(LOC) 3E.C; GLUCOSE,POINT OF CARE 189 MG/DL (70-110)
[2021-07-30] MEDS: LORazepam 2 MG TABLET PO PRN ×2 (08:05→17:28)
[2021-07-30] MEDS: MULTIVITAMINS WITH MINERALS, THERAPEUTIC TABLET PO SCH (08:05)
[2021-07-30] MEDS: OLANZapine 5 MG RAPDIS TABLET PO PRN (08:05)
[2021-07-30] MEDS: MUPIROCIN CALCIUM 2% 22 GM OINTMENT NASAL SCH ×2 (08:05→17:28)
[2021-07-30 08:16] VITALS: BP 126/81
[2021-07-30 11:39] LABS: GLUCOMETER DEV NAME(LOC) 3E.C; GLUCOSE,POINT OF CARE 145 MG/DL (70-110)
[2021-07-30 16:20] VITALS: BP 142/78
[2021-07-30 17:19] LABS: GLUCOMETER DEV NAME(LOC) 3E.C; GLUCOSE,POINT OF CARE 144 MG/DL (70-110)
[2021-07-30] MEDS: QUEtiapine FUMARATE 300 MG TABLET PO SCH (20:43)
[2021-07-30] MEDS: TraZODone HCL 100 MG TABLET PO SCH (20:43)
[2021-07-30] MEDS: ZOLPIDEM TARTRATE 10 MG TABLET PO PRN (21:04)
[2021-07-30 21:13] LABS: GLUCOMETER DEV NAME(LOC) 3E.C; GLUCOSE,POINT OF CARE 192 MG/DL (70-110)
[2021-07-31 06:41] LABS: GLUCOMETER DEV NAME(LOC) 3E.C; GLUCOSE,POINT OF CARE 194 MG/DL (70-110)
[2021-07-31] MEDS: MetFORMIN HCL 500 MG TABLET PO SCH ×2 (06:59→16:50)
[2021-07-31] MEDS: INSULIN LISPRO 100 UNITS/ML SQ PRN ×4 (07:02→21:08)
[2021-07-31 08:21] VITALS: BP 157/98
[2021-07-31] MEDS: MUPIROCIN CALCIUM 2% 22 GM OINTMENT NASAL SCH ×2 (08:34→16:50)
[2021-07-31] MEDS: IBUPROFEN 400 MG TABLET PO PRN (08:35)
[2021-07-31] MEDS: LORazepam 2 MG TABLET PO PRN ×2 (08:35→19:57)
[2021-07-31] MEDS: MULTIVITAMINS WITH MINERALS, THERAPEUTIC TABLET PO SCH (08:35)
[2021-07-31] MEDS: OLANZapine 5 MG RAPDIS TABLET PO PRN (08:35)
[2021-07-31 11:40] LABS: GLUCOMETER DEV NAME(LOC) 3E.C; GLUCOSE,POINT OF CARE 180 MG/DL (70-110)
[2021-07-31 16:29] VITALS: BP 139/78
[2021-07-31 16:53] LABS: GLUCOMETER DEV NAME(LOC) 3E.C; GLUCOSE,POINT OF CARE 150 MG/DL (70-110)
[2021-07-31] MEDS: TraZODone HCL 100 MG TABLET PO SCH (21:05)
[2021-07-31] MEDS: QUEtiapine FUMARATE 300 MG TABLET PO SCH (21:05)
[2021-07-31 21:10] LABS: GLUCOMETER DEV NAME(LOC) 3E.C; GLUCOSE,POINT OF CARE 151 MG/DL (70-110)
[2021-08-01] MEDS: MetFORMIN HCL 500 MG TABLET PO SCH ×2 (06:38→16:38)
[2021-08-01] MEDS: LORazepam 2 MG TABLET PO PRN ×2 (06:38→20:04)
[2021-08-01] MEDS: INSULIN LISPRO 100 UNITS/ML SQ PRN ×3 (06:41→21:12)
[2021-08-01 06:47] LABS: GLUCOMETER DEV NAME(LOC) 3E.C; GLUCOSE,POINT OF CARE 160 MG/DL (70-110)
[2021-08-01 07:27] LABS: COVID AG,FIA SOURCE NASAL SWAB
[2021-08-01] MEDS: MULTIVITAMINS WITH MINERALS, THERAPEUTIC TABLET PO SCH (09:57)
[2021-08-01] MEDS: MUPIROCIN CALCIUM 2% 22 GM OINTMENT NASAL SCH ×2 (09:57→16:37)
[2021-08-01 11:24] LABS: GLUCOMETER DEV NAME(LOC) 3E.C; GLUCOSE,POINT OF CARE 228 MG/DL (70-110)
[2021-08-01 16:14] VITALS: BP 134/84
[2021-08-01 16:43] LABS: GLUCOMETER DEV NAME(LOC) 3E.C; GLUCOSE,POINT OF CARE 95 MG/DL (70-110)
[2021-08-01 21:05] LABS: GLUCOMETER DEV NAME(LOC) 3EX.; GLUCOSE,POINT OF CARE 189 MG/DL (70-110)
[2021-08-01] MEDS: TraZODone HCL 100 MG TABLET PO SCH (21:10)
[2021-08-01] MEDS: QUEtiapine FUMARATE 300 MG TABLET PO SCH (21:10)
[2021-08-02 05:43] LABS: GLUCOMETER DEV NAME(LOC) 3E.C; GLUCOSE,POINT OF CARE 183 MG/DL (70-110)
[2021-08-02 05:57] LABS: BASOPHILS % (AUTO) 1.3 % (0.0-2.0); EOSINOPHILS % (AUTO) 4.5 % (1.0-6.0); HEMOGLOBIN 13.8 g/dL (12.0-16.0); LYMPHOCYTES # (AUTO) 1.8 K/uL (1.0-4.8); MEAN CORPUSCULAR HEMOGLOBIN 30.1 pg (26.0-34.0); MEAN CORPUSCULAR VOLUME 91 fL (80-100); MONOCYTES # (AUTO) 0.8 K/uL (0.1-1.0); MONOCYTES % (AUTO) 17.4 % (2.0-9.0); NEUTROPHILS # (AUTO) 1.6 K/uL (1.8-7.7); NEUTROPHILS % (AUTO) 35.8 % (40.0-70.0); PLATELET COUNT (AUTO) 293 K/uL (150-450); RED BLOOD CELL COUNT(AUTO) 4.59 MIL/uL (4.00-5.20); RED CELL DISTRIBUTION WIDTH 14.1 % (11.5-14.5)
[2021-08-02] MEDS: MetFORMIN HCL 500 MG TABLET PO SCH ×2 (06:44→16:17)
[2021-08-02] MEDS: INSULIN LISPRO 100 UNITS/ML SQ PRN ×4 (06:45→20:49)
[2021-08-02 08:00] VITALS: BP 113/73
[2021-08-02] MEDS: MUPIROCIN CALCIUM 2% 22 GM OINTMENT NASAL SCH (10:48)
[2021-08-02] MEDS: MULTIVITAMINS WITH MINERALS, THERAPEUTIC TABLET PO SCH (10:49)
[2021-08-02 13:15] LABS: GLUCOMETER DEV NAME(LOC) 3E.C; GLUCOSE,POINT OF CARE 179 MG/DL (70-110)
[2021-08-02 16:20] VITALS: BP 119/77
[2021-08-02] MEDS: LORazepam 2 MG TABLET PO PRN (16:37)
[2021-08-02] MEDS: GuaiFENesin/D-METHORPHAN [SUGAR-FREE] 200-20MG/10 ML SYRUP UDCUP PO PRN (16:53)
[2021-08-02] MEDS: TraZODone HCL 100 MG TABLET PO SCH (20:06)
[2021-08-02] MEDS: QUEtiapine FUMARATE 300 MG TABLET PO SCH (20:06)
[2021-08-02 20:58] LABS: GLUCOMETER DEV NAME(LOC) 3E.C; GLUCOSE,POINT OF CARE 173 MG/DL (70-110)
[2021-08-02 20:58] LABS: GLUCOMETER DEV NAME(LOC) 3E.C; GLUCOSE,POINT OF CARE 176 MG/DL (70-110)
[2021-08-03 06:05] LABS: GLUCOMETER DEV NAME(LOC) 3E.C; GLUCOSE,POINT OF CARE 217 MG/DL (70-110)
[2021-08-03] MEDS: MetFORMIN HCL 500 MG TABLET PO SCH ×2 (06:36→16:43)
[2021-08-03] MEDS: INSULIN LISPRO 100 UNITS/ML SQ PRN ×4 (06:37→21:11)
[2021-08-03 08:17] VITALS: BP 110/72
[2021-08-03] MEDS: LORazepam 2 MG TABLET PO PRN ×2 (09:28→18:07)
[2021-08-03] MEDS: MULTIVITAMINS WITH MINERALS, THERAPEUTIC TABLET PO SCH (09:28)
[2021-08-03 11:08] LABS: GLUCOMETER DEV NAME(LOC) 3E.C; GLUCOSE,POINT OF CARE 148 MG/DL (70-110)
[2021-08-03 15:48] LABS: GLUCOMETER DEV NAME(LOC) 3E.C; GLUCOSE,POINT OF CARE 268 MG/DL (70-110)
[2021-08-03 16:12] VITALS: BP 119/75
[2021-08-03] MEDS: TraZODone HCL 100 MG TABLET PO SCH (20:32)
[2021-08-03] MEDS: QUEtiapine FUMARATE 200 MG TABLET PO SCH (20:32)
[2021-08-03 20:42] LABS: GLUCOMETER DEV NAME(LOC) 3E.C; GLUCOSE,POINT OF CARE 173 MG/DL (70-110)
[2021-08-04] MEDS: ZOLPIDEM TARTRATE 10 MG TABLET PO PRN (00:46)
[2021-08-04 06:25] LABS: GLUCOMETER DEV NAME(LOC) 3E.C; GLUCOSE,POINT OF CARE 196 MG/DL (70-110)
[2021-08-04] MEDS: MetFORMIN HCL 500 MG TABLET PO SCH ×2 (06:43→16:48)
[2021-08-04] MEDS: INSULIN LISPRO 100 UNITS/ML SQ PRN ×4 (06:44→20:55)
[2021-08-04] MEDS: MULTIVITAMINS WITH MINERALS, THERAPEUTIC TABLET PO SCH (07:41)
[2021-08-04] MEDS: LORazepam 2 MG TABLET PO PRN (07:42)
[2021-08-04 11:29] LABS: GLUCOMETER DEV NAME(LOC) 3E.C; GLUCOSE,POINT OF CARE 182 MG/DL (70-110)
[2021-08-04 16:22] LABS: GLUCOMETER DEV NAME(LOC) 3E.C; GLUCOSE,POINT OF CARE 248 MG/DL (70-110)
[2021-08-04 16:39] VITALS: BP 121/69
[2021-08-04 16:43] VITALS: BP 121/69
[2021-08-04] MEDS: TraZODone HCL 100 MG TABLET PO SCH (20:36)
[2021-08-04] MEDS: QUEtiapine FUMARATE 200 MG TABLET PO SCH (20:36)
[2021-08-04 21:03] LABS: GLUCOMETER DEV NAME(LOC) 3E.C; GLUCOSE,POINT OF CARE 146 MG/DL (70-110)
[2021-08-05] MEDS: LORazepam 2 MG TABLET PO PRN ×3 (05:10→15:55)
[2021-08-05 05:22] LABS: GLUCOMETER DEV NAME(LOC) 3E.C; GLUCOSE,POINT OF CARE 179 MG/DL (70-110)
[2021-08-05] MEDS: MetFORMIN HCL 500 MG TABLET PO SCH ×2 (06:36→17:42)
[2021-08-05] MEDS: INSULIN LISPRO 100 UNITS/ML SQ PRN ×4 (06:37→21:05)
[2021-08-05] MEDS: MULTIVITAMINS WITH MINERALS, THERAPEUTIC TABLET PO SCH (09:48)
[2021-08-05] MEDS: OLANZapine 5 MG RAPDIS TABLET PO PRN ×2 (09:49→15:55)
[2021-08-05 13:11] LABS: GLUCOMETER DEV NAME(LOC) 3E.C; GLUCOSE,POINT OF CARE 210 MG/DL (70-110)
[2021-08-05 16:00] VITALS: BP 152/91
[2021-08-05 17:17] VITALS: BP 155/91
[2021-08-05 17:22] LABS: GLUCOMETER DEV NAME(LOC) 3E.C; GLUCOSE,POINT OF CARE 173 MG/DL (70-110)
[2021-08-05] MEDS: QUEtiapine FUMARATE 200 MG TABLET PO SCH (21:02)
[2021-08-05] MEDS: TraZODone HCL 100 MG TABLET PO SCH (21:02)
[2021-08-05 21:13] LABS: GLUCOMETER DEV NAME(LOC) 3E.C; GLUCOSE,POINT OF CARE 198 MG/DL (70-110)
[2021-08-06 05:26] LABS: GLUCOMETER DEV NAME(LOC) 3E.C; GLUCOSE,POINT OF CARE 196 MG/DL (70-110)
[2021-08-06] MEDS: MetFORMIN HCL 500 MG TABLET PO SCH ×2 (06:32→15:50)
[2021-08-06] MEDS: INSULIN LISPRO 100 UNITS/ML SQ PRN ×4 (06:32→20:30)
[2021-08-06] MEDS: OLANZapine 5 MG RAPDIS TABLET PO PRN ×2 (07:53→15:49)
[2021-08-06] MEDS: LORazepam 2 MG TABLET PO PRN ×3 (07:53→20:27)
[2021-08-06] MEDS: MULTIVITAMINS WITH MINERALS, THERAPEUTIC TABLET PO SCH (07:53)
[2021-08-06] MEDS: GuaiFENesin/D-METHORPHAN [SUGAR-FREE] 200-20MG/10 ML SYRUP UDCUP PO PRN ×2 (08:19→16:51)
[2021-08-06 11:55] LABS: GLUCOMETER DEV NAME(LOC) 3E.C; GLUCOSE,POINT OF CARE 244 MG/DL (70-110)
[2021-08-06 16:46] VITALS: BP 134/80
[2021-08-06 18:13] LABS: GLUCOMETER DEV NAME(LOC) 3E.C; GLUCOSE,POINT OF CARE 253 MG/DL (70-110)
[2021-08-06] MEDS: QUEtiapine FUMARATE 200 MG TABLET PO SCH (20:25)
[2021-08-06] MEDS: TraZODone HCL 100 MG TABLET PO SCH (20:25)
[2021-08-06 20:36] LABS: GLUCOMETER DEV NAME(LOC) 3E.C; GLUCOSE,POINT OF CARE 235 MG/DL (70-110)
[2021-08-07 05:50] LABS: GLUCOMETER DEV NAME(LOC) 3E.C; GLUCOSE,POINT OF CARE 261 MG/DL (70-110)
[2021-08-07] MEDS: MetFORMIN HCL 500 MG TABLET PO SCH ×2 (06:38→16:58)
[2021-08-07] MEDS: INSULIN LISPRO 100 UNITS/ML SQ PRN ×4 (06:42→20:41)
[2021-08-07 07:57] LABS: COVID AG,FIA SOURCE NASAL SWAB
[2021-08-07] MEDS: LORazepam 2 MG TABLET PO PRN ×2 (10:49→16:10)
[2021-08-07] MEDS: OLANZapine 5 MG RAPDIS TABLET PO PRN ×2 (10:49→16:10)
[2021-08-07] MEDS: MULTIVITAMINS WITH MINERALS, THERAPEUTIC TABLET PO SCH (10:49)
[2021-08-07 12:22] LABS: GLUCOMETER DEV NAME(LOC) 3E.C; GLUCOSE,POINT OF CARE 291 MG/DL (70-110)
[2021-08-07 16:05] VITALS: BP 111/66
[2021-08-07 16:20] LABS: GLUCOMETER DEV NAME(LOC) 3E.C; GLUCOSE,POINT OF CARE 154 MG/DL (70-110)
[2021-08-07] MEDS: TraZODone HCL 100 MG TABLET PO SCH (20:40)
[2021-08-07] MEDS: QUEtiapine FUMARATE 200 MG TABLET PO SCH (20:40)
[2021-08-07 20:51] LABS: GLUCOMETER DEV NAME(LOC) 3E.C; GLUCOSE,POINT OF CARE 197 MG/DL (70-110)
[2021-08-08] MEDS: IBUPROFEN 400 MG TABLET PO PRN (04:53)
[2021-08-08] MEDS: LORazepam 2 MG TABLET PO PRN ×3 (04:53→20:19)
[2021-08-08 05:02] VITALS: BP 124/72
[2021-08-08] MEDS: MetFORMIN HCL 500 MG TABLET PO SCH ×2 (06:04→16:55)
[2021-08-08 06:25] LABS: GLUCOMETER DEV NAME(LOC) 3E.C; GLUCOSE,POINT OF CARE 249 MG/DL (70-110)
[2021-08-08] MEDS: INSULIN LISPRO 100 UNITS/ML SQ PRN ×3 (06:45→17:52)
[2021-08-08 08:00] VITALS: BP 144/86
[2021-08-08] MEDS: OLANZapine 5 MG RAPDIS TABLET PO PRN (09:32)
[2021-08-08] MEDS: MULTIVITAMINS WITH MINERALS, THERAPEUTIC TABLET PO SCH (09:32)
[2021-08-08 11:36] LABS: GLUCOMETER DEV NAME(LOC) 3E.C; GLUCOSE,POINT OF CARE 227 MG/DL (70-110)
[2021-08-08 16:18] VITALS: BP 126/81
[2021-08-08 16:26] LABS: GLUCOMETER DEV NAME(LOC) 3E.C; GLUCOSE,POINT OF CARE 156 MG/DL (70-110)
[2021-08-08 20:36] LABS: GLUCOMETER DEV NAME(LOC) 3E.C; GLUCOSE,POINT OF CARE 126 MG/DL (70-110)
[2021-08-08] MEDS: TraZODone HCL 100 MG TABLET PO SCH (21:09)
[2021-08-08] MEDS: QUEtiapine FUMARATE 200 MG TABLET PO SCH (21:09)
[2021-08-09] MEDS: LORazepam 2 MG TABLET PO PRN ×2 (04:36→10:11)
[2021-08-09 06:27] LABS: GLUCOMETER DEV NAME(LOC) 3E.C; GLUCOSE,POINT OF CARE 203 MG/DL (70-110)
[2021-08-09] MEDS: MetFORMIN HCL 500 MG TABLET PO SCH ×2 (06:46→16:25)
[2021-08-09] MEDS: INSULIN LISPRO 100 UNITS/ML SQ PRN ×4 (06:47→20:57)
[2021-08-09] MEDS: MULTIVITAMINS WITH MINERALS, THERAPEUTIC TABLET PO SCH (07:57)
[2021-08-09] MEDS: OLANZapine 5 MG RAPDIS TABLET PO PRN (08:00)
[2021-08-09 08:16] VITALS: BP 115/76
[2021-08-09 12:02] LABS: GLUCOMETER DEV NAME(LOC) 3E.C; GLUCOSE,POINT OF CARE 269 MG/DL (70-110)
[2021-08-09 17:11] LABS: GLUCOMETER DEV NAME(LOC) 3E.C; GLUCOSE,POINT OF CARE 139 MG/DL (70-110)
[2021-08-09] MEDS: TraZODone HCL 100 MG TABLET PO SCH (20:30)
[2021-08-09] MEDS: QUEtiapine FUMARATE 200 MG TABLET PO SCH (20:30)
[2021-08-09 20:54] LABS: GLUCOMETER DEV NAME(LOC) 3E.C; GLUCOSE,POINT OF CARE 221 MG/DL (70-110)
[2021-08-10 06:33] LABS: GLUCOMETER DEV NAME(LOC) 3E.C; GLUCOSE,POINT OF CARE 173 MG/DL (70-110)
[2021-08-10] MEDS: MetFORMIN HCL 500 MG TABLET PO SCH ×2 (06:53→16:53)
[2021-08-10] MEDS: INSULIN LISPRO 100 UNITS/ML SQ PRN ×3 (06:54→21:12)
[2021-08-10] MEDS: LORazepam 2 MG TABLET PO PRN ×3 (08:08→20:37)
[2021-08-10] MEDS: OLANZapine 5 MG RAPDIS TABLET PO PRN ×2 (08:08→13:20)
[2021-08-10] MEDS: MULTIVITAMINS WITH MINERALS, THERAPEUTIC TABLET PO SCH (08:08)
[2021-08-10 08:23] VITALS: BP 121/87
[2021-08-10 12:04] LABS: GLUCOMETER DEV NAME(LOC) 3E.C; GLUCOSE,POINT OF CARE 233 MG/DL (70-110)
[2021-08-10 15:49] LABS: GLUCOMETER DEV NAME(LOC) 3E.C; GLUCOSE,POINT OF CARE 146 MG/DL (70-110)
[2021-08-10 16:00] VITALS: BP 128/84
[2021-08-10] MEDS: QUEtiapine FUMARATE 200 MG TABLET PO SCH (20:37)
[2021-08-10] MEDS: TraZODone HCL 100 MG TABLET PO SCH (20:37)
[2021-08-10 20:53] LABS: GLUCOMETER DEV NAME(LOC) 3E.C; GLUCOSE,POINT OF CARE 158 MG/DL (70-110)
[2021-08-11 06:13] LABS: GLUCOMETER DEV NAME(LOC) 3E.C; GLUCOSE,POINT OF CARE 179 MG/DL (70-110)
[2021-08-11] MEDS: MetFORMIN HCL 500 MG TABLET PO SCH (06:35)
[2021-08-11] MEDS: INSULIN LISPRO 100 UNITS/ML SQ PRN ×2 (06:37→12:04)
[2021-08-11 06:45] LABS: BASOPHILS % (AUTO) 0.9 % (0.0-2.0); EOSINOPHILS % (AUTO) 2.1 % (1.0-6.0); HEMATOCRIT 38.4 % (36-46); HEMOGLOBIN 12.5 g/dL (12.0-16.0); LYMPHOCYTES # (AUTO) 2.4 K/uL (1.0-4.8); LYMPHOCYTES % (AUTO) 39.1 % (22.0-44.0); MEAN CORPUSCULAR HEMOGLOBIN 29.7 pg (26.0-34.0); MEAN CORPUSCULAR HGB CONC 32.6 G/dL (31.0-37.0); MEAN CORPUSCULAR VOLUME 91 fL (80-100); MONOCYTES # (AUTO) 0.5 K/uL (0.1-1.0); MONOCYTES % (AUTO) 8.5 % (2.0-9.0); NEUTROPHILS % (AUTO) 49.4 % (40.0-70.0); PLATELET COUNT (AUTO) 309 K/uL (150-450); RED BLOOD CELL COUNT(AUTO) 4.23 MIL/uL (4.00-5.20); RED CELL DISTRIBUTION WIDTH 14.4 % (11.5-14.5)
[2021-08-11] MEDS: MULTIVITAMINS WITH MINERALS, THERAPEUTIC TABLET PO SCH (07:50)
[2021-08-11] MEDS: OLANZapine 5 MG RAPDIS TABLET PO PRN (07:50)
[2021-08-11] MEDS: LORazepam 2 MG TABLET PO PRN (07:50)
[2021-08-11] MEDS: IBUPROFEN 400 MG TABLET PO PRN (09:08)
[2021-08-11] MEDS ORDERED: QUET200T PO (11:34)
[2021-08-11 12:07] LABS: GLUCOMETER DEV NAME(LOC) 3E.C; GLUCOSE,POINT OF CARE 223 MG/DL (70-110)
== END 2021-08-11 13:23 | disposition home or self-care (01) | DRG 750 ==
LOC: EMS 03:06 → 3EC 16:46
PROVIDERS: ADMIT Psychiatry & Neurology Psychiatry; ATTEND Psychiatry & Neurology Psychiatry
DX: F20.0 Paranoid schizophrenia (principal); G92.9 Unspecified toxic encephalopathy; E11.9 Type 2 diabetes mellitus without complications; M62.82 Rhabdomyolysis; D72.819 Decreased white blood cell count, unspecified; D72.829 Elevated white blood cell count, unspecified; E66.01 Morbid (severe) obesity due to excess calories; E78.5 Hyperlipidemia, unspecified; E87.6 Hypokalemia; F12.90 Cannabis use, unspecified, uncomplicated; F15.90 Other stimulant use, unspecified, uncomplicated; G89.29 Other chronic pain; Z20.822 Contact with and (suspected) exposure to COVID-19; Z68.37 Body mass index [BMI] 37.0-37.9, adult; Z59.00 Homelessness unspecified; Z79.899 Other long term (current) drug therapy; Z91.19 Patient's noncompliance with other medical treatment and regimen; Z88.8 Allergy status to other drugs, medicaments and biological substances
CPT/HCPCS: 80053; 80061; 82550; 82962; 83605; 83735; 84132; 85025; 87081; 99291; G0480; J1200; J2060; J3230; J7030

== ENCOUNTER 2021-08-19 10:37 | Inpatient (IN) | payer MEDICAID ==
[~2021-08-19] VITALS: Ht 160 cm; Wt 102.5 kg
[~2021-08-19 10:37] MED LIST changes: -DIPH-966 PO; -FLUO20SO2 PO; -GABA-1181 PO; -INSLAN SQ; -MULT-248 PO; -NALT50TA PO; +QUET200T PO; -QUET200T30 PO; -QUET300T19 PO; -QUET300T2 PO
[2021-08-19] MEDS ORDERED: DiphenhydrAMINE HCL 50 MG/ML VIAL IVP ONE (10:45)
[2021-08-19] MEDS ORDERED: LORazepam 2 MG/ML VIAL IVP ONE ×2 (11:45→13:00)
[2021-08-19] MEDS ORDERED: BENZTROPINE MESYLATE 1 MG/ML 2 ML VIAL IVP ONE (11:45)
[2021-08-19 12:01] LABS: BASOPHILS % (AUTO) 0.9 % (0.0-2.0); EOSINOPHILS % (AUTO) 0.5 % (1.0-6.0); HEMATOCRIT 38.3 % (36-46); HEMOGLOBIN 12.8 g/dL (12.0-16.0); LYMPHOCYTES % (AUTO) 21.4 % (22.0-44.0); MEAN CORPUSCULAR HEMOGLOBIN 30.3 pg (26.0-34.0); MEAN CORPUSCULAR HGB CONC 33.4 G/dL (31.0-37.0); MEAN CORPUSCULAR VOLUME 91 fL (80-100); MONOCYTES # (AUTO) 0.9 K/uL (0.1-1.0); MONOCYTES % (AUTO) 9.8 % (2.0-9.0); NEUTROPHILS # (AUTO) 6.5 K/uL (1.8-7.7); NEUTROPHILS % (AUTO) 67.4 % (40.0-70.0); PLATELET COUNT (AUTO) 379 K/uL (150-450); RED BLOOD CELL COUNT(AUTO) 4.23 MIL/uL (4.00-5.20); RED CELL DISTRIBUTION WIDTH 14.6 % (11.5-14.5)
[2021-08-19 12:10] LABS: ANION GAP 14 mmol/L (8-16); CALCIUM, TOTAL 9.5 mg/dL (8.8-10.5); CARBON DIOXIDE 27 mmol/L (22-29); CHLORIDE 103 mmol/L (98-107); CREATININE 0.74 mg/dL (0.60-1.30); GLOMERULAR FILTR. RATE CALC > 60 mL/min (>60); GLUCOSE,RANDOM 137 mg/dL (70-110); SODIUM SERUM 144 mmol/L (136-145); UREA NITROGEN, BLOOD 16 mg/dL (7-18)
[2021-08-19 12:34] LABS: ALANINE AMINOTRANSFERASE 21 U/L (12-78); ALBUMIN 3.9 g/dL (3.4-5.0); ALKALINE PHOSPHATASE 131 U/L (46-116); ASPARTATE AMINOTRANSFERASE 25 U/L (15-37); BILIRUBIN,TOTAL 0.9 mg/dL (0.1-1.0); CREATINE KINASE, TOTAL ONLY 429 U/L (26-192); TOTAL PROTEIN, SERUM 8.4 g/dL (6.4-8.2)
[2021-08-19] MEDS ORDERED: SODIUM CHLORIDE 0.9% 1,000 ML IV ONE (13:00)
[2021-08-19 22:14] LABS: APPEARANCE,URINE CLOUDY (CLEAR); GLUCOSE, URINE (UA) 250 mg/dL (NEGATIVE); KETONES,URINE 15 mg/dL (NEGATIVE); LEUKOCYTE ESTERASE ,URINE SMALL (NEGATIVE); NITRATE,URINE NEGATIVE (NEGATIVE); OCCULT BLOOD,URINE NEGATIVE (NEGATIVE); PH,URINE 5.5 (5.0-8.0); PROTEIN,URINE POS 1+ (NEGATIVE)
[2021-08-19 22:16] LABS: BILIRUBIN,URINE PRELIM. POSITIVE (NEGATIVE)
[2021-08-19 22:33] LABS: BACTERIA,URINE Moderate /HPF (None Seen); RBC,URINE 0-2 /HPF (0-2)
[2021-08-19 22:49] LABS: COVID AG,FIA SOURCE NASOPHARYNGEAL
[2021-08-19] MEDS: LORazepam 2 MG TABLET PO PRN (22:50)
[2021-08-19 23:39] LABS: AMPHET/METH SCREEN,URINE POSITIVE (NEGATIVE); BARBITURATE SCREEN, URINE NEGATIVE (NEGATIVE); BENZODIAZEPINES SCREEN,URINE NEGATIVE (NEGATIVE); CANNABINOID SCREEN,URINE NEGATIVE (NEGATIVE); COCAINE SCREEN,URINE NEGATIVE (NEGATIVE); METHADONE SCREEN, URINE NEGATIVE (NEGATIVE); OPIATE SCREEN,URINE NEGATIVE (NEGATIVE)
[2021-08-19 23:42] LABS: PHENCYCLIDINE SCREEN,URINE NEGATIVE (NEGATIVE)
[2021-08-20] MEDS: ZOLPIDEM TARTRATE 10 MG TABLET PO PRN ×2 (01:42→20:36)
[2021-08-20 05:21] LABS: CHOL/HDL RATIO 3.4 (3.9-5.7)
[2021-08-20 09:27] LABS: GLUCOSE,POINT OF CARE 247 MG/DL (70-110)
[2021-08-20] MEDS ORDERED: GLUCAGON,HUMAN RECOMBINANT 1 MG VIAL IM PRN (11:15)
[2021-08-20] MEDS: INSULIN LISPRO 100 UNITS/ML SQ PRN ×3 (11:49→21:12)
[2021-08-20 13:16] LABS: GLUCOMETER DEV NAME(LOC) BV3S.; GLUCOSE,POINT OF CARE 193 MG/DL (70-110)
[2021-08-20 13:56] VITALS: BP 129/77
[2021-08-20 16:41] VITALS: BP 125/78
[2021-08-20] MEDS ORDERED: POTASSIUM CHLORIDE 20 MEQ ER TABLET PO ONE (16:45)
[2021-08-20] MEDS: MetFORMIN HCL 500 MG TABLET PO SCH (16:50)
[2021-08-20 17:00] LABS: GLUCOMETER DEV NAME(LOC) BV3S.; GLUCOSE,POINT OF CARE 213 MG/DL (70-110)
[2021-08-20] MEDS: TraZODone HCL 50 MG TABLET PO SCH (20:35)
[2021-08-20] MEDS: CEPHALEXIN MONOHYDRATE 500 MG CAPSULE PO SCH (20:35)
[2021-08-20] MEDS: QUEtiapine FUMARATE 200 MG TABLET PO SCH (20:36)
[2021-08-20 21:20] LABS: GLUCOMETER DEV NAME(LOC) BV3S.; GLUCOSE,POINT OF CARE 156 MG/DL (70-110)
[2021-08-21 05:43] VITALS: BP 122/74
[2021-08-21] MEDS: INSULIN LISPRO 100 UNITS/ML SQ PRN ×4 (06:23→20:54)
[2021-08-21 06:32] LABS: GLUCOMETER DEV NAME(LOC) BV3S.; GLUCOSE,POINT OF CARE 182 MG/DL (70-110)
[2021-08-21] MEDS: MetFORMIN HCL 500 MG TABLET PO SCH ×2 (07:11→16:27)
[2021-08-21] MEDS: CEPHALEXIN MONOHYDRATE 500 MG CAPSULE PO SCH ×3 (08:47→16:28)
[2021-08-21] MEDS ORDERED: NICOTINE 14 MG/24 HOUR PATCH TD PRN (10:30)
[2021-08-21] MEDS ORDERED: PETROLATUM,WHITE 28 GM JELLY TP PRN (10:30)
[2021-08-21] MEDS ORDERED: IBUPROFEN 400 MG TABLET PO PRN (10:30)
[2021-08-21] MEDS ORDERED: ALBUTEROL SULFATE HFA 90 MCG/PUFF 8 GM INHALER IH PRN (10:30)
[2021-08-21] MEDS ORDERED: MAGNESIUM HYDROXIDE SUSPENSION 30 ML UDCUP PO PRN (10:30)
[2021-08-21] MEDS ORDERED: DOCUSATE SODIUM 100 MG CAPSULE PO PRN (10:30)
[2021-08-21] MEDS ORDERED: LOPERAMIDE HCL 2 MG CAPSULE PO PRN (10:30)
[2021-08-21] MEDS ORDERED: GuaiFENesin/D-METHORPHAN [SUGAR-FREE] 200-20MG/10 ML SYRUP UDCUP PO PRN (10:30)
[2021-08-21] MEDS ORDERED: CloNIDine HCL 0.1 MG TABLET PO PRN (10:30)
[2021-08-21] MEDS ORDERED: MAG HYDROX/AL HYDROX/SIMETH ES 30 ML SUSPENSION UDCUP PO PRN (10:30)
[2021-08-21] MEDS ORDERED: ONDANSETRON HCL 4 MG TABLET PO PRN (10:30)
[2021-08-21 12:01] LABS: GLUCOMETER DEV NAME(LOC) BV3S.; GLUCOSE,POINT OF CARE 168 MG/DL (70-110)
[2021-08-21] MEDS: LORazepam 2 MG TABLET PO PRN (14:11)
[2021-08-21 16:23] VITALS: BP 110/64
[2021-08-21 16:59] LABS: GLUCOMETER DEV NAME(LOC) BV3S.; GLUCOSE,POINT OF CARE 161 MG/DL (70-110)
[2021-08-21] MEDS ORDERED: MetFORMIN HCL 500 MG TABLET PO SCH (17:00)
[2021-08-21] MEDS: TraZODone HCL 50 MG TABLET PO SCH (20:38)
[2021-08-21] MEDS: QUEtiapine FUMARATE 200 MG TABLET PO SCH (20:39)
[2021-08-21 21:37] LABS: GLUCOMETER DEV NAME(LOC) BV3S.; GLUCOSE,POINT OF CARE 149 MG/DL (70-110)
[2021-08-22 01:09] VITALS: BP 120/67
[2021-08-22] MEDS: ZOLPIDEM TARTRATE 10 MG TABLET PO PRN (01:13)
[2021-08-22] MEDS: MetFORMIN HCL 500 MG TABLET PO SCH ×2 (06:39→16:39)
[2021-08-22 06:40] LABS: GLUCOMETER DEV NAME(LOC) BV3S.; GLUCOSE,POINT OF CARE 158 MG/DL (70-110)
[2021-08-22] MEDS: INSULIN LISPRO 100 UNITS/ML SQ PRN ×3 (06:42→21:35)
[2021-08-22 08:26] LABS: FREE T4 (FREE THYROXINE) 0.98 ng/dL (0.76-1.46); THYROID STIMULATING HORMONE 0.7 uIU/mL (0.36-3.74)
[2021-08-22] MEDS: LORazepam 2 MG TABLET PO PRN (08:28)
[2021-08-22] MEDS: CEPHALEXIN MONOHYDRATE 500 MG CAPSULE PO SCH ×3 (08:28→16:39)
[2021-08-22 12:16] LABS: GLUCOMETER DEV NAME(LOC) BV3S.; GLUCOSE,POINT OF CARE 116 MG/DL (70-110)
[2021-08-22 17:02] LABS: GLUCOMETER DEV NAME(LOC) BV3S.; GLUCOSE,POINT OF CARE 277 MG/DL (70-110)
[2021-08-22 17:05] VITALS: BP 100/70
[2021-08-22] MEDS: QUEtiapine FUMARATE 200 MG TABLET PO SCH (21:31)
[2021-08-22] MEDS: TraZODone HCL 50 MG TABLET PO SCH (21:31)
[2021-08-22 21:53] LABS: GLUCOMETER DEV NAME(LOC) BV3S.; GLUCOSE,POINT OF CARE 195 MG/DL (70-110)
[2021-08-23 04:23] VITALS: BP 114/68
[2021-08-23] MEDS: LORazepam 2 MG TABLET PO PRN (06:20)
[2021-08-23] MEDS: MetFORMIN HCL 500 MG TABLET PO SCH ×2 (06:21→17:59)
[2021-08-23] MEDS: INSULIN LISPRO 100 UNITS/ML SQ PRN ×2 (06:22→18:13)
[2021-08-23 06:26] LABS: GLUCOMETER DEV NAME(LOC) BV3N.; GLUCOSE,POINT OF CARE 193 MG/DL (70-110)
[2021-08-23] MEDS: CEPHALEXIN MONOHYDRATE 500 MG CAPSULE PO SCH ×3 (08:22→17:59)
[2021-08-23 08:32] VITALS: BP 118/74
[2021-08-23 11:59] LABS: GLUCOMETER DEV NAME(LOC) BV3S.; GLUCOSE,POINT OF CARE 217 MG/DL (70-110)
[2021-08-23 16:30] VITALS: BP 117/76
[2021-08-23] MEDS: MUPIROCIN CALCIUM 2% 22 GM OINTMENT TP SCH (17:59)
[2021-08-23 18:31] LABS: GLUCOMETER DEV NAME(LOC) BV3S.; GLUCOSE,POINT OF CARE 246 MG/DL (70-110)
[2021-08-23] MEDS: TraZODone HCL 50 MG TABLET PO SCH (21:00)
[2021-08-23] MEDS: QUEtiapine FUMARATE 200 MG TABLET PO SCH (21:00)
[2021-08-24] MEDS: MetFORMIN HCL 500 MG TABLET PO SCH ×2 (06:14→16:20)
[2021-08-24] MEDS: LORazepam 2 MG TABLET PO PRN ×4 (06:14→21:55)
[2021-08-24 06:30] LABS: GLUCOMETER DEV NAME(LOC) BV3S.; GLUCOSE,POINT OF CARE 228 MG/DL (70-110)
[2021-08-24] MEDS: MUPIROCIN CALCIUM 2% 22 GM OINTMENT TP SCH ×2 (08:06→16:24)
[2021-08-24] MEDS: CEPHALEXIN MONOHYDRATE 500 MG CAPSULE PO SCH ×3 (08:06→16:20)
[2021-08-24 08:46] VITALS: BP 111/60
[2021-08-24] MEDS: QUEtiapine FUMARATE 100 MG TABLET PO PRN ×2 (10:17→16:20)
[2021-08-24] MEDS: INSULIN LISPRO 100 UNITS/ML SQ PRN ×3 (11:52→20:30)
[2021-08-24 11:55] LABS: GLUCOMETER DEV NAME(LOC) BV3S.; GLUCOSE,POINT OF CARE 211 MG/DL (70-110)
[2021-08-24 17:17] LABS: GLUCOMETER DEV NAME(LOC) BV3S.; GLUCOSE,POINT OF CARE 264 MG/DL (70-110)
[2021-08-24] MEDS: QUEtiapine FUMARATE 200 MG TABLET PO SCH (20:12)
[2021-08-24] MEDS: TraZODone HCL 50 MG TABLET PO SCH (20:12)
[2021-08-24] MEDS: ZOLPIDEM TARTRATE 10 MG TABLET PO PRN (20:12)
[2021-08-24 21:25] LABS: GLUCOMETER DEV NAME(LOC) BV3S.; GLUCOSE,POINT OF CARE 161 MG/DL (70-110)
[2021-08-24 21:55] VITALS: BP 107/65
[2021-08-25 01:57] VITALS: BP_SYST 110; BP_SYST 114; BP_DIAS 65
[2021-08-25 07:19] LABS: GLUCOMETER DEV NAME(LOC) BV3S.; GLUCOSE,POINT OF CARE 269 MG/DL (70-110)
[2021-08-25] MEDS: MetFORMIN HCL 500 MG TABLET PO SCH ×2 (07:23→16:25)
[2021-08-25] MEDS: INSULIN LISPRO 100 UNITS/ML SQ PRN ×3 (07:25→20:49)
[2021-08-25] MEDS: MUPIROCIN CALCIUM 2% 22 GM OINTMENT TP SCH ×2 (08:17→16:24)
[2021-08-25] MEDS: CEPHALEXIN MONOHYDRATE 500 MG CAPSULE PO SCH ×3 (08:17→16:25)
[2021-08-25 08:34] VITALS: BP 123/69
[2021-08-25] MEDS: LORazepam 2 MG TABLET PO PRN ×2 (09:00→14:36)
[2021-08-25] MEDS: QUEtiapine FUMARATE 100 MG TABLET PO PRN ×2 (09:03→14:36)
[2021-08-25 11:14] LABS: GLUCOMETER DEV NAME(LOC) BV3S.; GLUCOSE,POINT OF CARE 151 MG/DL (70-110)
[2021-08-25 17:38] VITALS: BP 125/73
[2021-08-25] MEDS: QUEtiapine FUMARATE 200 MG TABLET PO SCH (20:39)
[2021-08-25] MEDS: ZOLPIDEM TARTRATE 10 MG TABLET PO PRN (20:40)
[2021-08-25] MEDS: TraZODone HCL 50 MG TABLET PO SCH (20:40)
[2021-08-25 21:11] LABS: GLUCOMETER DEV NAME(LOC) BV3S.; GLUCOSE,POINT OF CARE 234 MG/DL (70-110)
[2021-08-26 04:35] VITALS: BP 114/76
[2021-08-26] MEDS: LORazepam 2 MG TABLET PO PRN ×2 (06:12→13:37)
[2021-08-26] MEDS: QUEtiapine FUMARATE 100 MG TABLET PO PRN (06:12)
[2021-08-26] MEDS: MetFORMIN HCL 500 MG TABLET PO SCH ×2 (06:32→17:01)
[2021-08-26] MEDS: INSULIN LISPRO 100 UNITS/ML SQ PRN ×4 (06:34→20:35)
[2021-08-26 06:46] LABS: GLUCOMETER DEV NAME(LOC) BV3S.; GLUCOSE,POINT OF CARE 208 MG/DL (70-110)
[2021-08-26 08:24] VITALS: BP 121/68
[2021-08-26] MEDS: MUPIROCIN CALCIUM 2% 22 GM OINTMENT TP SCH ×2 (09:30→17:01)
[2021-08-26 11:16] LABS: GLUCOMETER DEV NAME(LOC) BV3S.; GLUCOSE,POINT OF CARE 261 MG/DL (70-110)
[2021-08-26 16:01] VITALS: BP 106/62
[2021-08-26 17:02] LABS: GLUCOMETER DEV NAME(LOC) BV3S.; GLUCOSE,POINT OF CARE 220 MG/DL (70-110)
[2021-08-26 20:34] LABS: GLUCOMETER DEV NAME(LOC) BV3S.; GLUCOSE,POINT OF CARE 182 MG/DL (70-110)
[2021-08-26] MEDS: QUEtiapine FUMARATE 200 MG TABLET PO SCH (20:38)
[2021-08-26] MEDS: TraZODone HCL 50 MG TABLET PO SCH (20:38)
[2021-08-26] MEDS: DiphenhydrAMINE HCL 25 MG CAPSULE PO SCH (21:29)
[2021-08-27 00:29] VITALS: BP 110/74
[2021-08-27 06:39] LABS: GLUCOMETER DEV NAME(LOC) BV3S.; GLUCOSE,POINT OF CARE 301 MG/DL (70-110)
[2021-08-27] MEDS: QUEtiapine FUMARATE 100 MG TABLET PO PRN ×3 (06:40→22:48)
[2021-08-27] MEDS: LORazepam 2 MG TABLET PO PRN ×3 (06:40→16:56)
[2021-08-27] MEDS: MetFORMIN HCL 500 MG TABLET PO SCH ×2 (06:40→16:56)
[2021-08-27] MEDS: INSULIN LISPRO 100 UNITS/ML SQ PRN ×4 (06:43→21:25)
[2021-08-27] MEDS: MUPIROCIN CALCIUM 2% 22 GM OINTMENT TP SCH ×2 (09:52→16:56)
[2021-08-27 11:09] LABS: GLUCOMETER DEV NAME(LOC) BV3S.; GLUCOSE,POINT OF CARE 235 MG/DL (70-110)
[2021-08-27 16:54] LABS: GLUCOMETER DEV NAME(LOC) BV3S.; GLUCOSE,POINT OF CARE 169 MG/DL (70-110)
[2021-08-27 17:45] VITALS: BP 128/66
[2021-08-27] MEDS: QUEtiapine FUMARATE 300 MG TABLET PO SCH (21:06)
[2021-08-27] MEDS: TraZODone HCL 50 MG TABLET PO SCH (21:06)
[2021-08-27] MEDS: DiphenhydrAMINE HCL 25 MG CAPSULE PO SCH (21:06)
[2021-08-27 21:25] LABS: GLUCOMETER DEV NAME(LOC) BV3S.; GLUCOSE,POINT OF CARE 178 MG/DL (70-110)
[2021-08-27] MEDS: ZOLPIDEM TARTRATE 10 MG TABLET PO PRN (22:48)
[2021-08-28 01:44] VITALS: BP 116/71
[2021-08-28] MEDS: MetFORMIN HCL 500 MG TABLET PO SCH ×2 (06:20→16:48)
[2021-08-28 06:38] LABS: GLUCOMETER DEV NAME(LOC) BV3S.; GLUCOSE,POINT OF CARE 322 MG/DL (70-110)
[2021-08-28] MEDS: MUPIROCIN CALCIUM 2% 22 GM OINTMENT TP SCH ×2 (09:06→16:47)
[2021-08-28] MEDS: QUEtiapine FUMARATE 100 MG TABLET PO PRN ×2 (11:00→15:17)
[2021-08-28] MEDS: INSULIN LISPRO 100 UNITS/ML SQ PRN ×3 (11:00→20:44)
[2021-08-28] MEDS: LORazepam 2 MG TABLET PO PRN ×2 (11:00→15:17)
[2021-08-28 11:49] LABS: GLUCOMETER DEV NAME(LOC) BV3S.; GLUCOSE,POINT OF CARE 197 MG/DL (70-110)
[2021-08-28 16:24] VITALS: BP 107/60
[2021-08-28 17:11] LABS: GLUCOMETER DEV NAME(LOC) BV3S.; GLUCOSE,POINT OF CARE 155 MG/DL (70-110)
[2021-08-28] MEDS: DiphenhydrAMINE HCL 25 MG CAPSULE PO SCH (20:28)
[2021-08-28] MEDS: TraZODone HCL 50 MG TABLET PO SCH (20:28)
[2021-08-28] MEDS: QUEtiapine FUMARATE 300 MG TABLET PO SCH (20:28)
[2021-08-28 20:58] LABS: GLUCOMETER DEV NAME(LOC) BV3S.; GLUCOSE,POINT OF CARE 211 MG/DL (70-110)
[2021-08-29] MEDS: LORazepam 2 MG TABLET PO PRN ×3 (05:22→15:57)
[2021-08-29] MEDS: MetFORMIN HCL 500 MG TABLET PO SCH ×2 (06:10→16:02)
[2021-08-29 06:39] LABS: GLUCOMETER DEV NAME(LOC) BV3S.; GLUCOSE,POINT OF CARE 243 MG/DL (70-110)
[2021-08-29] MEDS: INSULIN LISPRO 100 UNITS/ML SQ PRN ×4 (06:44→20:17)
[2021-08-29 06:54] VITALS: BP 117/76
[2021-08-29 07:19] VITALS: BP 112/72
[2021-08-29 08:42] VITALS: BP 124/81
[2021-08-29] MEDS: QUEtiapine FUMARATE 100 MG TABLET PO PRN ×2 (09:28→15:57)
[2021-08-29 11:53] LABS: GLUCOMETER DEV NAME(LOC) BV3S.; GLUCOSE,POINT OF CARE 218 MG/DL (70-110)
[2021-08-29 16:37] LABS: GLUCOMETER DEV NAME(LOC) BV3S.; GLUCOSE,POINT OF CARE 341 MG/DL (70-110)
[2021-08-29 17:15] VITALS: BP 106/64
[2021-08-29] MEDS: DiphenhydrAMINE HCL 25 MG CAPSULE PO SCH (20:08)
[2021-08-29] MEDS: QUEtiapine FUMARATE 300 MG TABLET PO SCH (20:09)
[2021-08-29] MEDS: TraZODone HCL 50 MG TABLET PO SCH (20:09)
[2021-08-29 20:52] LABS: GLUCOMETER DEV NAME(LOC) BV3S.; GLUCOSE,POINT OF CARE 173 MG/DL (70-110)
[2021-08-30] MEDS: MetFORMIN HCL 500 MG TABLET PO SCH ×2 (06:14→16:13)
[2021-08-30] MEDS: INSULIN LISPRO 100 UNITS/ML SQ PRN ×4 (06:16→20:15)
[2021-08-30 06:20] LABS: GLUCOMETER DEV NAME(LOC) BV3S.; GLUCOSE,POINT OF CARE 214 MG/DL (70-110)
[2021-08-30] MEDS: QUEtiapine FUMARATE 100 MG TABLET PO PRN ×3 (06:23→16:13)
[2021-08-30] MEDS: LORazepam 2 MG TABLET PO PRN ×2 (06:23→14:44)
[2021-08-30 07:14] VITALS: BP 115/70
[2021-08-30 10:21] VITALS: BP 127/73
[2021-08-30 11:54] LABS: GLUCOMETER DEV NAME(LOC) BV3S.; GLUCOSE,POINT OF CARE 190 MG/DL (70-110)
[2021-08-30 16:40] VITALS: BP 113/67
[2021-08-30 16:42] LABS: GLUCOMETER DEV NAME(LOC) BV3S.; GLUCOSE,POINT OF CARE 265 MG/DL (70-110)
[2021-08-30] MEDS: QUEtiapine FUMARATE 300 MG TABLET PO SCH (20:07)
[2021-08-30] MEDS: TraZODone HCL 50 MG TABLET PO SCH (20:07)
[2021-08-30] MEDS: DiphenhydrAMINE HCL 25 MG CAPSULE PO SCH (20:07)
[2021-08-30 20:51] LABS: GLUCOMETER DEV NAME(LOC) BV3S.; GLUCOSE,POINT OF CARE 211 MG/DL (70-110)
[2021-08-31 00:24] VITALS: BP 102/63
[2021-08-31 06:26] LABS: GLUCOMETER DEV NAME(LOC) BV3S.; GLUCOSE,POINT OF CARE 306 MG/DL (70-110)
[2021-08-31] MEDS: INSULIN LISPRO 100 UNITS/ML SQ PRN ×3 (06:27→16:39)
[2021-08-31] MEDS: MetFORMIN HCL 500 MG TABLET PO SCH ×2 (06:27→16:01)
[2021-08-31] MEDS: LORazepam 2 MG TABLET PO PRN ×2 (09:08→13:47)
[2021-08-31 11:10] LABS: GLUCOMETER DEV NAME(LOC) BV3S.; GLUCOSE,POINT OF CARE 162 MG/DL (70-110)
[2021-08-31] MEDS: QUEtiapine FUMARATE 100 MG TABLET PO PRN (13:47)
[2021-08-31 16:18] VITALS: BP 100/62
[2021-08-31 16:25] LABS: GLUCOMETER DEV NAME(LOC) POC.BV
[2021-08-31 16:44] LABS: GLUCOMETER DEV NAME(LOC) BV3S.; GLUCOSE,POINT OF CARE 244 MG/DL (70-110)
[2021-08-31] MEDS: DiphenhydrAMINE HCL 25 MG CAPSULE PO SCH (20:09)
[2021-08-31] MEDS: QUEtiapine FUMARATE 300 MG TABLET PO SCH (20:09)
[2021-08-31] MEDS: TraZODone HCL 50 MG TABLET PO SCH (20:09)
[2021-08-31 20:49] LABS: GLUCOMETER DEV NAME(LOC) BV3S.; GLUCOSE,POINT OF CARE 208 MG/DL (70-110)
[2021-08-31] MEDS: ZOLPIDEM TARTRATE 10 MG TABLET PO PRN (21:44)
[2021-09-01 00:47] VITALS: BP 108/77
[2021-09-01] MEDS: MetFORMIN HCL 500 MG TABLET PO SCH ×2 (06:50→16:54)
[2021-09-01 06:51] VITALS: BP 115/2
[2021-09-01] MEDS: LORazepam 2 MG TABLET PO PRN ×2 (06:51→14:16)
[2021-09-01] MEDS ORDERED: INSULIN REGULAR, HUMAN 100 UNITS/ML SQ ONE (07:00)
[2021-09-01 07:04] LABS: GLUCOMETER DEV NAME(LOC) BV3S.; GLUCOSE,POINT OF CARE 422 MG/DL (70-110)
[2021-09-01 08:33] VITALS: BP 129/84
[2021-09-01 09:02] LABS: GLUCOMETER DEV NAME(LOC) BV3S.; GLUCOSE,POINT OF CARE 288 MG/DL (70-110)
[2021-09-01 12:16] LABS: GLUCOMETER DEV NAME(LOC) BV3S.; GLUCOSE,POINT OF CARE 115 MG/DL (70-110)
[2021-09-01] MEDS: QUEtiapine FUMARATE 100 MG TABLET PO PRN (14:16)
[2021-09-01 16:12] VITALS: BP 122/81
[2021-09-01 16:15] LABS: GLUCOMETER DEV NAME(LOC) BV3S.; GLUCOSE,POINT OF CARE 267 MG/DL (70-110)
[2021-09-01 16:54] VITALS: BP 122/81
[2021-09-01] MEDS: ACETAMINOPHEN 325 MG TABLET PO PRN (16:54)
[2021-09-01] MEDS: INSULIN LISPRO 100 UNITS/ML SQ PRN ×2 (17:26→20:37)
[2021-09-01] MEDS: DiphenhydrAMINE HCL 25 MG CAPSULE PO SCH (20:19)
[2021-09-01] MEDS: TraZODone HCL 50 MG TABLET PO SCH (20:19)
[2021-09-01] MEDS: QUEtiapine FUMARATE 300 MG TABLET PO SCH (20:19)
[2021-09-01] MEDS: ZOLPIDEM TARTRATE 10 MG TABLET PO PRN (20:19)
[2021-09-01 20:40] LABS: GLUCOMETER DEV NAME(LOC) BV3S.; GLUCOSE,POINT OF CARE 179 MG/DL (70-110)
[2021-09-02 01:01] VITALS: BP 114/73
[2021-09-02] MEDS: QUEtiapine FUMARATE 100 MG TABLET PO PRN ×3 (02:15→16:18)
[2021-09-02] MEDS: LORazepam 2 MG TABLET PO PRN ×2 (02:15→10:56)
[2021-09-02 06:30] LABS: GLUCOMETER DEV NAME(LOC) BV3S.; GLUCOSE,POINT OF CARE 206 MG/DL (70-110)
[2021-09-02] MEDS: MetFORMIN HCL 500 MG TABLET PO SCH ×2 (06:34→16:13)
[2021-09-02] MEDS: INSULIN LISPRO 100 UNITS/ML SQ PRN ×4 (06:43→20:45)
[2021-09-02 08:40] VITALS: BP 110/94
[2021-09-02 12:04] LABS: GLUCOMETER DEV NAME(LOC) BV3S.; GLUCOSE,POINT OF CARE 146 MG/DL (70-110)
[2021-09-02] MEDS: SUMAtriptan SUCCINATE 25 MG TABLET PO PRN (16:13)
[2021-09-02 16:23] VITALS: BP 138/68
[2021-09-02 16:51] LABS: GLUCOMETER DEV NAME(LOC) BV3S.; GLUCOSE,POINT OF CARE 285 MG/DL (70-110)
[2021-09-02] MEDS: QUEtiapine FUMARATE 300 MG TABLET PO SCH (20:27)
[2021-09-02] MEDS: TraZODone HCL 50 MG TABLET PO SCH (20:27)
[2021-09-02] MEDS: ZOLPIDEM TARTRATE 10 MG TABLET PO PRN (20:28)
[2021-09-02] MEDS: DiphenhydrAMINE HCL 25 MG CAPSULE PO SCH (20:28)
[2021-09-02 20:56] LABS: GLUCOMETER DEV NAME(LOC) BV3S.; GLUCOSE,POINT OF CARE 231 MG/DL (70-110)
[2021-09-03] VITALS (9 sets, daily range): BP systolic 98–142; BP diastolic 50–67
[2021-09-03] MEDS: LORazepam 2 MG TABLET PO PRN ×2 (05:12→12:14)
[2021-09-03] MEDS: SUMAtriptan SUCCINATE 25 MG TABLET PO PRN ×2 (05:12→17:07)
[2021-09-03] MEDS: INSULIN LISPRO 100 UNITS/ML SQ PRN ×4 (06:23→20:42)
[2021-09-03 06:27] LABS: GLUCOMETER DEV NAME(LOC) BV3S.; GLUCOSE,POINT OF CARE 272 MG/DL (70-110)
[2021-09-03] MEDS: MetFORMIN HCL 500 MG TABLET PO SCH ×2 (06:58→17:07)
[2021-09-03 11:24] LABS: GLUCOMETER DEV NAME(LOC) BV3S.; GLUCOSE,POINT OF CARE 281 MG/DL (70-110)
[2021-09-03] MEDS: QUEtiapine FUMARATE 100 MG TABLET PO PRN (12:14)
[2021-09-03] MEDS: ACETAMINOPHEN 325 MG TABLET PO PRN (13:14)
[2021-09-03 16:37] LABS: GLUCOMETER DEV NAME(LOC) BV3S.; GLUCOSE,POINT OF CARE 293 MG/DL (70-110)
[2021-09-03] MEDS: DiphenhydrAMINE HCL 25 MG CAPSULE PO SCH (20:21)
[2021-09-03] MEDS: TraZODone HCL 50 MG TABLET PO SCH (20:21)
[2021-09-03] MEDS: QUEtiapine FUMARATE 300 MG TABLET PO SCH (20:21)
[2021-09-03] MEDS: ZOLPIDEM TARTRATE 10 MG TABLET PO PRN (20:21)
[2021-09-03 20:45] LABS: GLUCOMETER DEV NAME(LOC) BV3S.; GLUCOSE,POINT OF CARE 242 MG/DL (70-110)
[2021-09-04 04:32] VITALS: BP 125/73
[2021-09-04] MEDS: LORazepam 2 MG TABLET PO PRN ×2 (04:42→12:12)
[2021-09-04] MEDS: MetFORMIN HCL 500 MG TABLET PO SCH ×2 (06:14→16:08)
[2021-09-04] MEDS: SUMAtriptan SUCCINATE 25 MG TABLET PO PRN (06:14)
[2021-09-04] MEDS: INSULIN LISPRO 100 UNITS/ML SQ PRN ×3 (06:22→16:14)
[2021-09-04 06:32] LABS: GLUCOMETER DEV NAME(LOC) BV3S.; GLUCOSE,POINT OF CARE 378 MG/DL (70-110)
[2021-09-04] MEDS: QUEtiapine FUMARATE 100 MG TABLET PO PRN ×2 (09:48→16:08)
[2021-09-04 11:46] LABS: GLUCOMETER DEV NAME(LOC) BV3S.; GLUCOSE,POINT OF CARE 169 MG/DL (70-110)
[2021-09-04 16:37] VITALS: BP 98/60
[2021-09-04 16:51] LABS: GLUCOMETER DEV NAME(LOC) BV3S.; GLUCOSE,POINT OF CARE 251 MG/DL (70-110)
[2021-09-04] MEDS: TraZODone HCL 50 MG TABLET PO SCH (20:25)
[2021-09-04] MEDS: QUEtiapine FUMARATE 300 MG TABLET PO SCH (20:25)
[2021-09-04] MEDS: ZOLPIDEM TARTRATE 10 MG TABLET PO PRN (20:25)
[2021-09-04] MEDS: DiphenhydrAMINE HCL 25 MG CAPSULE PO SCH (20:25)
[2021-09-04 20:35] LABS: GLUCOMETER DEV NAME(LOC) BV3S.; GLUCOSE,POINT OF CARE 131 MG/DL (70-110)
[2021-09-05 03:28] VITALS: BP 130/92
[2021-09-05] MEDS: LORazepam 2 MG TABLET PO PRN ×3 (05:06→14:02)
[2021-09-05] MEDS: SUMAtriptan SUCCINATE 25 MG TABLET PO PRN (05:06)
[2021-09-05 06:12] LABS: GLUCOMETER DEV NAME(LOC) BV3S.; GLUCOSE,POINT OF CARE 275 MG/DL (70-110)
[2021-09-05] MEDS: INSULIN LISPRO 100 UNITS/ML SQ PRN ×4 (06:28→21:07)
[2021-09-05] MEDS: MetFORMIN HCL 500 MG TABLET PO SCH ×2 (06:50→16:50)
[2021-09-05 08:11] VITALS: BP 126/88
[2021-09-05] MEDS: QUEtiapine FUMARATE 100 MG TABLET PO PRN ×2 (11:36→16:03)
[2021-09-05 12:20] LABS: GLUCOMETER DEV NAME(LOC) BV3S.; GLUCOSE,POINT OF CARE 224 MG/DL (70-110)
[2021-09-05 16:17] VITALS: BP 118/88
[2021-09-05 16:39] LABS: GLUCOMETER DEV NAME(LOC) BV3S.; GLUCOSE,POINT OF CARE 229 MG/DL (70-110)
[2021-09-05] MEDS: DiphenhydrAMINE HCL 25 MG CAPSULE PO SCH (20:57)
[2021-09-05] MEDS: QUEtiapine FUMARATE 300 MG TABLET PO SCH (20:57)
[2021-09-05] MEDS: TraZODone HCL 50 MG TABLET PO SCH (20:57)
[2021-09-05 21:21] LABS: GLUCOMETER DEV NAME(LOC) BV3S.; GLUCOSE,POINT OF CARE 216 MG/DL (70-110)
[2021-09-06 04:26] VITALS: BP 139/96
[2021-09-06] MEDS: QUEtiapine FUMARATE 100 MG TABLET PO PRN ×3 (04:33→16:44)
[2021-09-06] MEDS: LORazepam 2 MG TABLET PO PRN ×4 (04:33→19:48)
[2021-09-06] MEDS: INSULIN LISPRO 100 UNITS/ML SQ PRN ×3 (07:02→16:21)
[2021-09-06] MEDS: MetFORMIN HCL 500 MG TABLET PO SCH ×2 (07:05→16:18)
[2021-09-06 07:10] LABS: GLUCOMETER DEV NAME(LOC) BV3S.; GLUCOSE,POINT OF CARE 316 MG/DL (70-110)
[2021-09-06 08:29] VITALS: BP 120/78
[2021-09-06 12:12] LABS: GLUCOMETER DEV NAME(LOC) BV3S.; GLUCOSE,POINT OF CARE 230 MG/DL (70-110)
[2021-09-06 16:12] VITALS: BP 120/68
[2021-09-06 16:30] LABS: GLUCOMETER DEV NAME(LOC) BV3S.; GLUCOSE,POINT OF CARE 328 MG/DL (70-110)
[2021-09-06 20:04] LABS: GLUCOMETER DEV NAME(LOC) BV3S.; GLUCOSE,POINT OF CARE 112 MG/DL (70-110)
[2021-09-06] MEDS: DiphenhydrAMINE HCL 25 MG CAPSULE PO SCH (20:56)
[2021-09-06] MEDS: ZOLPIDEM TARTRATE 10 MG TABLET PO PRN (20:56)
[2021-09-06] MEDS: QUEtiapine FUMARATE 300 MG TABLET PO SCH (20:56)
[2021-09-06] MEDS: TraZODone HCL 50 MG TABLET PO SCH (20:56)
[2021-09-07 01:08] VITALS: BP 118/73
[2021-09-07 06:34] LABS: GLUCOMETER DEV NAME(LOC) BV3S.; GLUCOSE,POINT OF CARE 234 MG/DL (70-110)
[2021-09-07] MEDS: MetFORMIN HCL 500 MG TABLET PO SCH ×2 (06:49→16:44)
[2021-09-07] MEDS: INSULIN LISPRO 100 UNITS/ML SQ PRN ×3 (06:57→17:10)
[2021-09-07] MEDS: QUEtiapine FUMARATE 100 MG TABLET PO PRN ×2 (08:13→17:09)
[2021-09-07] MEDS: LORazepam 2 MG TABLET PO PRN ×2 (08:13→17:08)
[2021-09-07 08:33] VITALS: BP 127/81
[2021-09-07 12:03] LABS: GLUCOMETER DEV NAME(LOC) BV3S.; GLUCOSE,POINT OF CARE 246 MG/DL (70-110)
[2021-09-07 16:13] VITALS: BP 124/89
[2021-09-07 17:02] LABS: GLUCOMETER DEV NAME(LOC) BV3S.; GLUCOSE,POINT OF CARE 274 MG/DL (70-110)
[2021-09-07 20:11] LABS: GLUCOMETER DEV NAME(LOC) BV3S.; GLUCOSE,POINT OF CARE 126 MG/DL (70-110)
[2021-09-07] MEDS: TraZODone HCL 50 MG TABLET PO SCH (20:36)
[2021-09-07] MEDS: ZOLPIDEM TARTRATE 10 MG TABLET PO PRN (20:36)
[2021-09-07] MEDS: DiphenhydrAMINE HCL 25 MG CAPSULE PO SCH (20:36)
[2021-09-07] MEDS: QUEtiapine FUMARATE 300 MG TABLET PO SCH (20:36)
[2021-09-08 01:29] VITALS: BP 116/79
[2021-09-08] MEDS: INSULIN LISPRO 100 UNITS/ML SQ PRN ×4 (06:56→20:45)
[2021-09-08 07:06] LABS: GLUCOMETER DEV NAME(LOC) BV3S.; GLUCOSE,POINT OF CARE 208 MG/DL (70-110)
[2021-09-08] MEDS: MetFORMIN HCL 500 MG TABLET PO SCH ×2 (07:16→16:12)
[2021-09-08 08:21] VITALS: BP 129/81
[2021-09-08] MEDS: QUEtiapine FUMARATE 100 MG TABLET PO PRN ×2 (08:27→15:50)
[2021-09-08] MEDS: LORazepam 2 MG TABLET PO PRN ×2 (08:27→15:50)
[2021-09-08 12:07] LABS: GLUCOMETER DEV NAME(LOC) BV3S.; GLUCOSE,POINT OF CARE 233 MG/DL (70-110)
[2021-09-08 16:56] LABS: GLUCOMETER DEV NAME(LOC) BV3S.; GLUCOSE,POINT OF CARE 250 MG/DL (70-110)
[2021-09-08 17:16] VITALS: BP 115/74
[2021-09-08] MEDS: TraZODone HCL 50 MG TABLET PO SCH (20:31)
[2021-09-08] MEDS: DiphenhydrAMINE HCL 25 MG CAPSULE PO SCH (20:31)
[2021-09-08] MEDS: QUEtiapine FUMARATE 300 MG TABLET PO SCH (20:31)
[2021-09-08 20:56] LABS: GLUCOMETER DEV NAME(LOC) BV3S.; GLUCOSE,POINT OF CARE 169 MG/DL (70-110)
[2021-09-09 05:03] VITALS: BP 113/66
[2021-09-09] MEDS: LORazepam 2 MG TABLET PO PRN ×3 (06:10→14:32)
[2021-09-09] MEDS: QUEtiapine FUMARATE 100 MG TABLET PO PRN ×2 (06:10→11:27)
[2021-09-09 06:21] LABS: GLUCOMETER DEV NAME(LOC) BV3S.; GLUCOSE,POINT OF CARE 286 MG/DL (70-110)
[2021-09-09] MEDS: MetFORMIN HCL 500 MG TABLET PO SCH ×2 (06:50→16:42)
[2021-09-09] MEDS: INSULIN LISPRO 100 UNITS/ML SQ PRN ×3 (06:51→17:08)
[2021-09-09 08:22] VITALS: BP 122/83
[2021-09-09 11:42] LABS: GLUCOMETER DEV NAME(LOC) BV3S.; GLUCOSE,POINT OF CARE 227 MG/DL (70-110)
[2021-09-09 16:17] VITALS: BP 125/70
[2021-09-09 17:01] LABS: GLUCOMETER DEV NAME(LOC) BV3S.; GLUCOSE,POINT OF CARE 413 MG/DL (70-110)
[2021-09-09] MEDS ORDERED: INSULIN LISPRO 100 UNITS/ML SQ ONE (17:36)
[2021-09-09 20:31] LABS: GLUCOMETER DEV NAME(LOC) BV3S.; GLUCOSE,POINT OF CARE 285 MG/DL (70-110)
[2021-09-09] MEDS: TraZODone HCL 50 MG TABLET PO SCH (21:03)
[2021-09-09] MEDS: DiphenhydrAMINE HCL 25 MG CAPSULE PO SCH (21:03)
[2021-09-09] MEDS: QUEtiapine FUMARATE 300 MG TABLET PO SCH (21:03)
[2021-09-09 21:27] LABS: GLUCOMETER DEV NAME(LOC) BV3S.; GLUCOSE,POINT OF CARE 112 MG/DL (70-110)
[2021-09-10] MEDS: QUEtiapine FUMARATE 100 MG TABLET PO PRN ×4 (00:39→18:07)
[2021-09-10] MEDS: LORazepam 2 MG TABLET PO PRN ×4 (00:40→18:07)
[2021-09-10 00:56] VITALS: BP 119/75
[2021-09-10] MEDS: MetFORMIN HCL 500 MG TABLET PO SCH ×2 (06:22→17:01)
[2021-09-10] MEDS: INSULIN LISPRO 100 UNITS/ML SQ PRN ×3 (06:24→17:08)
[2021-09-10 06:38] LABS: GLUCOMETER DEV NAME(LOC) BV3S.; GLUCOSE,POINT OF CARE 259 MG/DL (70-110)
[2021-09-10 08:35] VITALS: BP 129/82
[2021-09-10 10:11] LABS: GLUCOMETER DEV NAME(LOC) POC.BV
[2021-09-10 12:38] LABS: GLUCOMETER DEV NAME(LOC) BV3S.; GLUCOSE,POINT OF CARE 203 MG/DL (70-110)
[2021-09-10 17:35] VITALS: BP 126/58
[2021-09-10 17:38] LABS: GLUCOMETER DEV NAME(LOC) BV3S.; GLUCOSE,POINT OF CARE 282 MG/DL (70-110)
[2021-09-10] MEDS: TraZODone HCL 50 MG TABLET PO SCH (21:06)
[2021-09-10] MEDS: DiphenhydrAMINE HCL 25 MG CAPSULE PO SCH (21:06)
[2021-09-10] MEDS: QUEtiapine FUMARATE 300 MG TABLET PO SCH (21:06)
[2021-09-10 21:32] LABS: GLUCOMETER DEV NAME(LOC) BV3S.; GLUCOSE,POINT OF CARE 140 MG/DL (70-110)
[2021-09-11 00:22] VITALS: BP 117/74
[2021-09-11] MEDS: LORazepam 2 MG TABLET PO PRN ×3 (03:00→13:11)
[2021-09-11] MEDS: QUEtiapine FUMARATE 100 MG TABLET PO PRN ×3 (04:18→13:11)
[2021-09-11 06:21] LABS: GLUCOMETER DEV NAME(LOC) BV3S.; GLUCOSE,POINT OF CARE 197 MG/DL (70-110)
[2021-09-11] MEDS: INSULIN LISPRO 100 UNITS/ML SQ PRN ×3 (06:57→16:29)
[2021-09-11] MEDS: MetFORMIN HCL 500 MG TABLET PO SCH ×2 (07:04→16:30)
[2021-09-11 12:01] LABS: GLUCOMETER DEV NAME(LOC) BV3S.; GLUCOSE,POINT OF CARE 265 MG/DL (70-110)
[2021-09-11 12:52] VITALS: BP 120/76
[2021-09-11 16:11] VITALS: BP 127/82
[2021-09-11 16:52] LABS: GLUCOMETER DEV NAME(LOC) BV3S.; GLUCOSE,POINT OF CARE 276 MG/DL (70-110)
[2021-09-11] MEDS: TraZODone HCL 50 MG TABLET PO SCH (20:01)
[2021-09-11] MEDS: DiphenhydrAMINE HCL 25 MG CAPSULE PO SCH (20:01)
[2021-09-11] MEDS: QUEtiapine FUMARATE 300 MG TABLET PO SCH (20:01)
[2021-09-11 21:51] LABS: GLUCOMETER DEV NAME(LOC) BV3S.; GLUCOSE,POINT OF CARE 239 MG/DL (70-110)
[2021-09-12 00:22] VITALS: BP 120/76
[2021-09-12] MEDS: ZOLPIDEM TARTRATE 10 MG TABLET PO PRN (01:20)
[2021-09-12] MEDS: LORazepam 2 MG TABLET PO PRN (03:05)
[2021-09-12] MEDS: INSULIN LISPRO 100 UNITS/ML SQ PRN ×2 (06:39→11:56)
[2021-09-12 06:47] LABS: GLUCOMETER DEV NAME(LOC) BV3S.; GLUCOSE,POINT OF CARE 258 MG/DL (70-110)
[2021-09-12] MEDS: MetFORMIN HCL 500 MG TABLET PO SCH (06:51)
[2021-09-12 08:33] VITALS: BP 156/67
[2021-09-12 10:00] VITALS: BP 142/70
[2021-09-12 12:06] LABS: GLUCOMETER DEV NAME(LOC) BV3S.; GLUCOSE,POINT OF CARE 161 MG/DL (70-110)
== END 2021-09-12 13:09 | disposition home or self-care (01) | DRG 750 ==
LOC: EMS 10:45 → B3A 08-20 08:57
PROVIDERS: ADMIT Psychiatry & Neurology Psychiatry; ATTEND Psychiatry & Neurology Psychiatry
DX: F20.0 Paranoid schizophrenia (principal); E11.9 Type 2 diabetes mellitus without complications; E78.00 Pure hypercholesterolemia, unspecified; E78.5 Hyperlipidemia, unspecified; E87.6 Hypokalemia; F15.20 Other stimulant dependence, uncomplicated; Z59.00 Homelessness unspecified; Z88.8 Allergy status to other drugs, medicaments and biological substances; Z79.899 Other long term (current) drug therapy; Z91.14 Patient's other noncompliance with medication regimen
CPT/HCPCS: 80053; 80061; 81001; 82550; 82962; 84132; 84439; 84443; 85025; 87081; 87086; 99285; J0515; J1200; J1815; J2060; J7030